=== PATIENT | male | born 1955 | race Caucasian/White ===

== ENCOUNTER → 2016-04-26 | Outpatient (REF) | payer OTHER ==
[~2016-04-26] MED LIST: /CELE20CA OR; /LOR25TA OR; ALEV220C2 PO; AMIT10TA2; AMIT25TA2; AMIT25TA2 OR; BABY81CH PO; BILBERRY; BILBERRY PO; CATA0.1T PO; CLON0.5T; COLA100C2 OR; COMPOUND CREAM TOP; DULO30CA PO; FENT100D25 TD; FLEXERIL; FLEXERIL PO; FURO20TA2 OR; GABA-283 PO; GARLPOW PO; GLUC1000 OR; GLYB1.255; GLYB2.5T6 PO; HYDROCODONE; INSUDET SC; JANU100T14 PO; JANU50TA8 PO; JANUVIA PO; LISI2.5T PO; LYRI150C; LYRI75CA; MAGN250T OR; METF500T4; METF500T4 PO; METH10TA2 OR; MORP15TA2 PO; MORP15TA4; NUCYNTA; OXYC10TA12 OR; PARO12TACR OR; PERC5TAB8 PO; SAWPOW; THERGRAN PO; TRAZ50TA OR; VITA500046 PO; XANA0.5T PO; ZANA4CAP; ZANA6CAP OR; janumet PO
[2016-04-26 13:37] LABS: MEAN CORPUSCULAR HEMOGLOBIN 30.2 pg (27.0-33.0); MEAN CORPUSCULAR HGB CONC 32.5 g/dl (32.0-36.5); MEAN CORPUSCULAR VOLUME 92.9 fl (80.0-96.0); RED CELL DISTRIBUTION WIDTH 12.6 % (11.5-14.5)
[2016-04-26 13:47] LABS: ALBUMIN 3.9 GM/DL (3.2-5.2); ALBUMIN/GLOBULIN RATIO 1.18 (1.00-1.93); ALKALINE PHOSPHATASE 53 U/L (45-117); ALT/SGPT 20 U/L (12-78); ANION GAP 7 MEQ/L (8-16); AST/SGOT 11 U/L (15-37); BILIRUBIN,TOTAL 0.4 MG/DL (0.2-1.0); BLOOD UREA NITROGEN 15 MG/DL (7-18); CALCIUM LEVEL 9.6 MG/DL (8.8-10.2); CARBON DIOXIDE LEVEL 32 MEQ/L (21-32); CHLORIDE LEVEL 100 MEQ/L (98-107); CREATININE FOR GFR 0.65 MG/DL (0.70-1.30); GLOMERULAR FILTRATION RATE > 60.0 (>49); GLUCOSE, FASTING 222 MG/DL (80-110); POTASSIUM SERUM 4.5 MEQ/L (3.5-5.1); SODIUM LEVEL 139 MEQ/L (136-145); TOTAL PROTEIN 7.2 GM/DL (6.4-8.2)
== END ==
LOC: M SFHCPLAZ 11:15
PROVIDERS: ATTEND Internal Medicine
DX: G60.9 Hereditary and idiopathic neuropathy, unspecified (principal); E11.9 Type 2 diabetes mellitus without complications

== ENCOUNTER → 2016-05-03 | Outpatient (CLI) | payer OTHER | LOC: M PAIN 11:00 | PROVIDERS: ATTEND Nurse Practitioner Family | DX: Z09 Encounter for follow-up examination after completed treatment for conditions other than malignant neoplasm (principal); G89.29 Other chronic pain; M54.2 Cervicalgia; E11.42 Type 2 diabetes mellitus with diabetic polyneuropathy; F17.200 Nicotine dependence, unspecified, uncomplicated; Z88.6 Allergy status to analgesic agent; Z91.041 Radiographic dye allergy status; Z79.84 Long term (current) use of oral hypoglycemic drugs; Z79.891 Long term (current) use of opiate analgesic; Z79.899 Other long term (current) drug therapy ==

== ENCOUNTER → 2016-09-06 | Outpatient (CLI) | payer OTHER ==
--- NOTE | 2016-09-07 02:24 | ECWPNPC ---
PATIENT NAME: BESSIE POLK : 1955 GENDER: MALE VISIT DATE: 09/06/2016 DISCHARGE DATE: 09/06/16 1147 VISIT LOCKED DATE TIME: PHYSICIAN: LAE ARMIJO RESOURCE: LEA ARMIJO REASON FOR APPOINTMENT 1. FOLLOWUP HISTORY OF PRESENT ILLNESS HISTORY OF PRESENT ILLNESS: CONTINUES W CONSTANT NECK AND UPPER BACK PAIN.VAS 4/10.PAIN IS CONSTANT SHARP AND BURNING.AGGREVATED W ACTIVITY.FINDS CURRENT MEDICINE HELPFUL W/OUT SIDE EFFECTS.C/O SEVERE LOWER EXTREMITY NEUROPATHY.REPORTING SEVERE HEAD PAIN HAS RESOLVED.STATES CAT SCAN BRAIN WAS NEGATIVE.STATES FULL BODY MRI NORMAL.SUFFERING FROM SEVERE NEUROPATHY IN HANDS.FINDING IT DIFFICULT TO USE HANDS.CURRENTLY USING MSIR 30MG PRN UP TO THREE TABS PER DAY ,GABAPENTIN 300MG AT HS AND XANAX 0.5MG ONCE PER DAY AT NIGHT PRN.FINDS THESE MEDICATIONS HELPFUL AT REDUCING PAIN AND KEEPING HIM COMFORTABLE.DENIES SIDE EFFECTS.ENCOURAGED TO TAKE GABAPENTIN 300MG AT LEAST TWICE PER DAY.PATIENT IS LEARY IT CAUSES FATIGUE.REPORTED LYRICA CAUSED LETHARGY AND HE WASNT ABLE TO TOLERATE IN THE PAST. PAIN THE PATIENT DESCRIBES THE PAIN... THE PATIENT DESCRIBES THE PAIN... THE PATIENT DESCRIBES THE PAIN... THE PATIENT DESCRIBES THE PAIN... THE PATIENT DESCRIBES THE PAIN... PAIN THE PATIENT DESCRIBES THE PAIN... THE PATIENT DESCRIBES THE PAIN... THE PATIENT DESCRIBES THE PAIN... THE PATIENT DESCRIBES THE PAIN... THE PATIENT DESCRIBES THE PAIN... FALL RISK SCREENING: SCREENING :NO FALLS IN THE PAST YEAR CURRENT MEDICATIONS TAKING COLACE 100 MG CAPSULE 1 CAPSULE ORALLY DAILY NEEDED FOR CONSTIPATION TAKING BLOOD GLUCOSE TEST STRIP _ STRIP DX: E11.9 IN VITRO DAILY, DX: E11.9 TAKING LISINOPRIL-HYDROCHLOROTHIAZIDE 20-12.5MG TABLET 1 TABLET ORALLY ONCE A DAY TAKING METFORMIN HCL 1000 MG TABLET 1 TABLET WITH MEALS ORALLY TWICE A DAY TAKING NORTRIPTYLINE HCL 50 MG CAPSULE 1 CAPSULE ORALLY ONCE A DAY AT BEDTIME; MAY INCREASE DOSE BY 1 PILL EVERY 5 DAYS NEEDED FOR NEUROPATHY--MAX 4 PILLS DAILY TAKING GLYBURIDE 5 MG TABLET 1 TABLET ORALLY THREE TIMES A DAY TAKING GABAPENTIN 300 MG CAPSULE 1 CAPSULE ORALLY BEFORE BEDTIME TAKING MORPHINE SULFATE 30 MG TABLET 1 TABLET ORALLY Q 8 HRS MDD=3 TAKING XANAX 0.5 MG TABLET 1 TABLET ORALLY DAILY MDD=1 ALLERGIES MOBIC: PT UNAWARE OF REACTION: ALLERGY MRI DYE: ANAPHYLAXIS: ALLERGY REVIEW OF SYSTEMS CONSTITUTIONAL: ANY CHANGE IN YOUR MEDICAL CONDITION? UNPLANNED WEIGHT LOSS OF 10 POUNDS/ SOMETIMES IS IN SO MUCH PAIN HE JUST GOES TO BED WITHOUT EATING, . CHILLS NO . FEVER NO . INFECTION: DO YOU HAVE NEW INFECTIONS? NO . DO YOU HAVE HISTORY OF MRSA? NO . MUSCULOSKELETAL: ANY NEW PATTERNS OF PAIN OR NUMBNESS? NO . GASTROENTEROLOGY: ANY NEW CHANGE IN BOWEL CONTROL? NO . GENITOURINARY: ANY NEW CHANGE IN BLADDER CONTROL? NO . IS THERE A CHANCE YOU COULD BE ? NO . HEMATOLOGY/LYMPH: DO YOU TAKE ANY BLOOD THINNERS? (FOR EXAMPLE- COUMADIN, PLAVIX, AGGRENOX, PLATEL, PRADAXA, OR XARELTO) NO . WHEN WAS YOUR LAST DOSE? DATE: TIME: . NEUROLOGY: HAVE YOU FALLEN IN THE PAST 6 MONTHS? NO . ANY NEW EXTREMITY NUMBNESS OR WEAKNESS? YES, NEUROPATHY HANDS /// RIGHT CALF CORNER OF LEFT EYE (BRAIN SPASMS) SEE LIGHTNING, ESPECIALLY AT NIGHT . CARDIOLOGY: DO YOU HAVE A PACEMAKER OR DEFIBRILLATOR? NO . RESPIRATORY: HAVE YOU BEEN SICK IN THE PAST WEEK? NO . FEVER NO . FLU LIKE SYMPTOMS? NO . COUGH NO . INTEGUMENTARY: DO YOU HAVE ANY RASHES OR OPEN SORES? NO . ALLERGIC/IMMUNO: ARE YOU ALLERGIC TO SHELLFISH OR IV DYE? NO . ANY NEW ALLERGIES? NO . PSYCHIATRIC: DO YOU HAVE THOUGHTS OF HURTING YOURSELF OR SOMEONE ELSE? NO . ARE YOU ABUSED, NEGLECTED, OR IN AN UNSAFE ENVIRONMENT? NO . ENDOCRINOLOGY: ARE YOU DIABETIC? NO . OTHER: DO YOU NEED ANY PRESCRIPTIONS? NO . IF YES, PLEASE LIST: ____ . ANY NEW PROBLEMS WITH YOUR MEDICATIONS? NO . WHEN DID YOU LAST EAT? ____ . WHEN DID YOU LAST DRINK? ____ . WHAT DID YOU LAST DRINK? ____ . NAME OF PERSON DRIVING YOU HOME? ____ . DO YOU HAVE ANY OTHER QUESTIONS OR CONCERNS NO . REVIEWED BY: PROVIDER: LEA STOVALL . VITAL SIGNS WT 164.8 LBS, HT 70 IN, BMI 23.64 INDEX, BP 146/72 MM HG, HR 90 /MIN, RR 16 /MIN, TEMP 97.4 F, OXYGEN SAT % 99%, NA INITIALS TL 1102, REVIEWED BY: SARIKAPT STATES HE HAS BEEN LOSING WEIGHT, WEIGHED PT ON PMC SCALE TODAY- TL. EXAMINATION GENERAL EXAMINATION: LUNGS:LUNG SOUNDS ARE CLEAR. HEART:HEART RATE REGULAR. MUSCULOSKELETAL:*TRIGGER POINTS:MULTIPLE OVER NECK AND UPPER BACK.HYPERSENSITIVE TO LIGHT TOUCH UPPER BACK AND NECK.. ASSESSMENTS CERVICALGIA - M54.2 (PRIMARY) CHRONIC PRESCRIPTION OPIATE USE - Z79.891 TREATMENT CERVICALGIA CONTINUE COLACE CAPSULE, 100 MG, 1 CAPSULE, ORALLY, DAILY NEEDED FOR CONSTIPATION INCREASE GABAPENTIN CAPSULE, 300 MG, 1 CAPSULE, ORALLY, TID, 30 DAY(S), 90, REFILLS 2 REFILL MORPHINE SULFATE TABLET, 30 MG, 1 TABLET, ORALLY, Q 8 HRS MDD=3, 30 DAYS, 90, REFILLS 0 REFILL XANAX TABLET, 0.5 MG, 1 TABLET, ORALLY, DAILY MDD=1, 30 DAY(S), 30, REFILLS 0 NOTES: ISTOP REGISTRY REVIEWED AND DEMNOSTRATES COMPLLIANCE. BRINGS IN MEDICATIONS WHICH IS APPROPRIATE FOR WHAT WAS DISPENSED. RECENT URINE TOXICOLOGY REVIEWED. NO UNAUTHORIZED MEDICATIONS. NO ILLICIT SUBSTANCES AND PRESCRIBED MEDICATIONS WERE PRESENT. , RISKS AND BENEFITS OF NARCOTIC/OPIOD MEDICATIONS WERE REVIEWED WITH PATIENT - THIS INCLUDES BUT IS NOT LIMITED TO RISK OF DEPENDANCE/DEVELOPMENT OF ADDICTION, MOOD DISTURBANCE AND DEPRESSION, OSTEOPOROSIS, HORMONAL AND LABIDAL CHANGES, RESPIRATORY DEPRESSION AND . PATIENT IS ADVISED NOT TO DRIVE WHILE ON THESE MEDICATIONS, REVIEWED WITH PATIENT THE POTENTIAL RISK OF INCREASED SEDATION, RESPIRATORY SUPPRESSION AND WITH THE COMBINATION OF BENZODIAZAPINE AND OPIOD MEDICATIONS. PATIENT STATES HE UNDERSTANDS THIS RISK AND WISHES TO CONTINUE WITH THERAPY. PROCEDURE CODES FA211 ESTABILISHED PATIENT [facility] CHARGE DISPOSITION & COMMUNICATION FOLLOW UP 4 MONTHS ELECTRONICALLY SIGNED BY SIA CHRISTIE ON 09/06/2016 AT 03:35 PM EDT DISCLAIMER : THIS IS A VISIT SUMMARY EXTRACTED FROM THE [employer] CHART. IT IS NOT A COPY OF THE [employer] PROGRESS NOTE. MTDD
== END ==
LOC: M PAIN 11:00
PROVIDERS: ATTEND Nurse Practitioner Family
DX: M54.2 Cervicalgia (principal); Z79.891 Long term (current) use of opiate analgesic; Z79.84 Long term (current) use of oral hypoglycemic drugs; Z79.899 Other long term (current) drug therapy; Z91.041 Radiographic dye allergy status; Z88.8 Allergy status to other drugs, medicaments and biological substances

== ENCOUNTER → 2017-01-10 | Outpatient (CLI) | payer OTHER ==
[~2017-01-10] MED LIST changes: +GLYB1POW PO; +LISINOP/HCTZ PO; +METFPOW PO; +POTA99TA PO
== END ==
LOC: M PAIN 11:00
PROVIDERS: ATTEND Nurse Practitioner Family
DX: M54.2 Cervicalgia (principal); M79.1 Myalgia; I10 Essential (primary) hypertension; E11.42 Type 2 diabetes mellitus with diabetic polyneuropathy; Z79.891 Long term (current) use of opiate analgesic; Z79.899 Other long term (current) drug therapy; Z79.84 Long term (current) use of oral hypoglycemic drugs; Z88.8 Allergy status to other drugs, medicaments and biological substances; Z91.041 Radiographic dye allergy status

== ENCOUNTER → 2017-03-13 | Outpatient (CLI) | payer OTHER | LOC: M PAIN 10:45 | DX: M54.2 Cervicalgia (principal); M79.1 Myalgia; E11.9 Type 2 diabetes mellitus without complications; M19.90 Unspecified osteoarthritis, unspecified site; F17.200 Nicotine dependence, unspecified, uncomplicated; Z88.5 Allergy status to narcotic agent; Z91.041 Radiographic dye allergy status; Z79.84 Long term (current) use of oral hypoglycemic drugs; Z79.891 Long term (current) use of opiate analgesic; Z79.899 Other long term (current) drug therapy | CPT/HCPCS: G0463 ==

== ENCOUNTER → 2017-03-28 | Outpatient (REF) | payer OTHER ==
[2017-03-28 13:06] LABS: MAU/CREAT RATIO 87.2 MCG/MG (0.0-30.0)
[2017-03-28 13:46] LABS: ALBUMIN 3.8 GM/DL (3.2-5.2); ALBUMIN/GLOBULIN RATIO 1.12 (1.00-1.93); ALKALINE PHOSPHATASE 66 U/L (45-117); ALT/SGPT 20 U/L (12-78); ANION GAP 7 MEQ/L (8-16); AST/SGOT 12 U/L (7-37); BILIRUBIN,TOTAL 0.2 MG/DL (0.2-1.0); BLOOD UREA NITROGEN 25 MG/DL (7-18); CALCIUM LEVEL 9.2 MG/DL (8.8-10.2); CARBON DIOXIDE LEVEL 30 MEQ/L (21-32); CHLORIDE LEVEL 102 MEQ/L (98-107); CHOLESTEROL LEVEL 124 MG/DL (<200); CHOLESTEROL RISK RATIO 3.179 (<5); CREATININE FOR GFR 0.82 MG/DL (0.70-1.30); GLOMERULAR FILTRATION RATE > 60.0 (>49); GLUCOSE, FASTING 268 MG/DL (80-110); HDL CHOLESTEROL 39 MG/DL (>40); NON-HDL-C 85 MG/DL; SODIUM LEVEL 139 MEQ/L (136-145); TOTAL PROTEIN 7.2 GM/DL (6.4-8.2); TRIGLYCERIDES LEVEL 85 MG/DL (<150)
[2017-03-28 13:49] LABS: POTASSIUM SERUM 5.3 MEQ/L (3.5-5.1)
[2017-03-28 14:56] LABS: ESTIMATED AVERAGE GLUCOSE 200 MG/DL (60-110); HEMOGLOBIN A1c 8.6 %
== END ==
LOC: M SFHCPLAZ 09:52
DX: E11.40 Type 2 diabetes mellitus with diabetic neuropathy, unspecified (principal); E78.00 Pure hypercholesterolemia, unspecified

== ENCOUNTER → 2017-05-29 | Outpatient (CLI) | payer OTHER | LOC: M PAIN 11:00 | DX: M54.2 Cervicalgia (principal); E11.9 Type 2 diabetes mellitus without complications; F17.210 Nicotine dependence, cigarettes, uncomplicated; I10 Essential (primary) hypertension; R51 Headache; M79.604 Pain in right leg; Z79.84 Long term (current) use of oral hypoglycemic drugs; Z79.891 Long term (current) use of opiate analgesic; Z79.899 Other long term (current) drug therapy; Z88.8 Allergy status to other drugs, medicaments and biological substances; Z91.041 Radiographic dye allergy status | CPT/HCPCS: G0463 ==

== ENCOUNTER → 2017-09-04 | Outpatient (CLI) | payer OTHER | LOC: M PAIN 11:00 | DX: M54.2 Cervicalgia (principal); E11.9 Type 2 diabetes mellitus without complications; F17.210 Nicotine dependence, cigarettes, uncomplicated; M19.90 Unspecified osteoarthritis, unspecified site; Z79.891 Long term (current) use of opiate analgesic; Z79.84 Long term (current) use of oral hypoglycemic drugs; Z79.899 Other long term (current) drug therapy; Z91.041 Radiographic dye allergy status; Z88.8 Allergy status to other drugs, medicaments and biological substances | CPT/HCPCS: G0463 ==

== ENCOUNTER → 2017-12-18 | Outpatient (CLI) | payer OTHER | LOC: M PAIN 11:00 | DX: M54.2 Cervicalgia (principal); E11.9 Type 2 diabetes mellitus without complications; F17.210 Nicotine dependence, cigarettes, uncomplicated; Z79.84 Long term (current) use of oral hypoglycemic drugs; Z79.891 Long term (current) use of opiate analgesic; Z79.899 Other long term (current) drug therapy; Z91.041 Radiographic dye allergy status; Z88.6 Allergy status to analgesic agent | CPT/HCPCS: G0463 ==

== ENCOUNTER → 2018-03-05 | Outpatient (CLI) | payer OTHER ==
[~2018-03-05] MED LIST changes: -GABA-283 PO; +GABA-845 PO
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
== END ==
LOC: M PAIN 14:30
PROVIDERS: ATTEND Nurse Practitioner Family
DX: M54.2 Cervicalgia (principal); E11.42 Type 2 diabetes mellitus with diabetic polyneuropathy; Z79.891 Long term (current) use of opiate analgesic; F17.210 Nicotine dependence, cigarettes, uncomplicated; Z79.899 Other long term (current) drug therapy; Z91.041 Radiographic dye allergy status; Z88.6 Allergy status to analgesic agent

== ENCOUNTER 2018-06-04 08:02 | Day surgery (SDC) | payer OTHER ==
[~2018-06-04] VITALS: Ht 182.9 cm; Wt 73.9 kg
[~2018-06-04 08:02] MED LIST changes: +GABA-843 PO; +GLIP10TA18 PO; +GLIP10TA6 PO; +LISI20TA PO; +MAGN250T6 PO; +METF10004 PO; +MS C30TA6 PO; +MSIR30TA PO; +MULTCAP PO; +NORT50CA PO; +NS 1,000 ML IV ONE
[2018-06-04] MEDS ORDERED: LIDOCAINE 2% INJ 100 MG/5 ML SDV (FOR ANES.) As Ordered ONE (09:04)
[2018-06-04] MEDS ORDERED: PROPOFOL 500 MG/50 ML VIAL As Ordered ONE (09:04)
--- NOTE | 2018-06-04 09:26 | ROOR ---
Patient Name: Francisco Begum Procedure Date: 06/04/2018 9:02 AM Date of : 1955 Age: 63 Room: [facility] Gender: Male Note Status: Finalized Procedure: Colonoscopy Indications: High risk colon cancer surveillance: Personal history of colonic polyps, Last colonoscopy: December 2016 Providers: Edu HINTON MD Referring MD: Jordy Martínez MD Requesting Provider: Medicines: Monitored Anesthesia Care Complications: No immediate complications. Procedure: Pre-Anesthesia Assessment: - The heart rate, respiratory rate, oxygen saturations, blood pressure, adequacy of pulmonary ventilation, and response to care were monitored throughout the procedure. The Colonoscope was introduced through the anus with the intention of advancing to the cecum. The scope was advanced to the transverse colon before the procedure was aborted. Medications were given. The colonoscopy was performed with difficulty due to poor bowel prep with stool present. The patient tolerated the procedure well. The quality of the bowel preparation was poor. Findings: The perianal and digital rectal examinations were normal. The colon is grossly normal without large tumors or obstructing lesions. Unable to perform adequate detail examination. Small lesions may have been missed. Impression: - Preparation of the colon was poor. - The colon is grossly normal without large tumors or obstructing lesions. Unable to perform adequate detail examination. - No specimens collected. Recommendation: - Repeat colonoscopy at the next available appointment because the bowel preparation was poor. - My office will call you within the next few days to reschedule a colonoscopy with alternate colon preparation. - You will need additional colon prep to complete a quality examination. Edu Hinton MD Edu HINTON MD 06/04/2018 9:26:18 AM This report has been signed electronically. Number of Addenda: 0 Note Initiated On: 06/04/2018 9:02 AM Estimated Blood Loss: Estimated blood loss: none.
[2018-06-04 09:45] VITALS: BP 95/64
== END 2018-06-04 09:49 | disposition home or self-care (01) ==
LOC: M OPP 08:02
PROVIDERS: ATTEND Internal Medicine Gastroenterology
DX: Z86.010 Personal history of colon polyps (principal)

== ENCOUNTER → 2018-06-05 | Outpatient (CLI) | payer OTHER ==
[~2018-06-05] MED LIST changes: -NS 1,000 ML IV ONE
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
== END ==
LOC: M PAIN 13:30
PROVIDERS: ATTEND Nurse Practitioner Family
DX: M54.2 Cervicalgia (principal); E11.40 Type 2 diabetes mellitus with diabetic neuropathy, unspecified; I10 Essential (primary) hypertension; E78.00 Pure hypercholesterolemia, unspecified; M54.6 Pain in thoracic spine; F17.210 Nicotine dependence, cigarettes, uncomplicated; Z79.84 Long term (current) use of oral hypoglycemic drugs; Z79.891 Long term (current) use of opiate analgesic; Z79.899 Other long term (current) drug therapy; Z88.6 Allergy status to analgesic agent; Z91.041 Radiographic dye allergy status

== ENCOUNTER → 2018-09-17 | Outpatient (CLI) | payer OTHER ==
[~2018-09-17] MED LIST changes: -/CELE20CA OR; +CELE1CAP4 OR; -DULO30CA PO; +DULO30CA9 PO; +TIZA6CAP8 OR; -ZANA6CAP OR
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
== END ==
LOC: M PAIN 10:30
PROVIDERS: ATTEND Family Medicine
DX: M54.2 Cervicalgia (principal); G62.9 Polyneuropathy, unspecified; I10 Essential (primary) hypertension; E78.00 Pure hypercholesterolemia, unspecified; F17.210 Nicotine dependence, cigarettes, uncomplicated; Z79.84 Long term (current) use of oral hypoglycemic drugs; Z79.891 Long term (current) use of opiate analgesic; Z79.899 Other long term (current) drug therapy; Z88.6 Allergy status to analgesic agent; Z91.041 Radiographic dye allergy status

== ENCOUNTER → 2018-11-12 | Outpatient (CLI) | payer OTHER ==
[~2018-11-12] MED LIST changes: -LISI20TA PO; +LISI20TA18 PO
--- NOTE | 2018-11-12 14:57 | REP ---
REASON: Tobacco abuse. COMPARISON: 06/11/2009 As per the protocol, only lung window images were sent to the read station for interpretation. There is a 4 mm sized unchanged nodule in the apical posterior segment of the left upper lobe abutting the major fissure. There is a 5 mm sized pleural-based nodule in the posterior segment of the right upper lobe. This too is unchanged. There is mild cylindrical bronchiectasis. This has developed since the prior exam or is at least much better imaged using today's technology compared to the prior old exam. No new abnormal nodules, masses, or opacities have developed. Gross evaluation of the mediastinum and pulmonary ashleigh shows no abnormalities. Gross evaluation of the imaged osseous structures and imaged upper abdomen shows no gross abnormalities. IMPRESSION: No new pulmonary nodules. Lung-RADS category 1. Cylindrical bronchiectasis, as described above. Electronically Signed by Alli Busch DO 11/12/2018 03:36 P
== END ==
LOC: M RAD 12:52
PROVIDERS: ATTEND Internal Medicine
DX: F17.210 Nicotine dependence, cigarettes, uncomplicated (principal); Z12.2 Encounter for screening for malignant neoplasm of respiratory organs

== ENCOUNTER → 2018-12-17 | Outpatient (CLI) | payer OTHER ==
[~2018-12-17] MED LIST changes: -LISI20TA18 PO; +LISI20TA19 PO
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
== END ==
LOC: M PAIN 10:30
PROVIDERS: ATTEND Family Medicine
DX: M54.2 Cervicalgia (principal); G89.29 Other chronic pain; E11.40 Type 2 diabetes mellitus with diabetic neuropathy, unspecified; I10 Essential (primary) hypertension; E78.00 Pure hypercholesterolemia, unspecified; F17.210 Nicotine dependence, cigarettes, uncomplicated; Z88.6 Allergy status to analgesic agent; Z91.041 Radiographic dye allergy status; Z79.84 Long term (current) use of oral hypoglycemic drugs; Z79.891 Long term (current) use of opiate analgesic; Z79.899 Other long term (current) drug therapy

== ENCOUNTER → 2019-02-11 | Outpatient (CLI) | payer OTHER ==
[~2019-02-11] MED LIST changes: +ISOVUE-370 76% 100ML VIAL (Q9967) As Ordered ONE
--- NOTE | 2019-02-11 15:34 | REP ---
CT neck: 02/11/2019. Indication: Neck mass. Comparison: 07/18/2007. Technique: Axial images of the neck soft tissues were obtained following the IV administration of 75 ml Isovue 370. Findings: There is no abnormal soft tissue mass, abnormal fluid collection or cervical lymphadenopathy. Atherosclerotic disease is noted. No severe ICA stenosis is detected by this technique. The nondominant left vertebral artery predominately terminates as PICA. No ocular, intraorbital or intracranial abnormalities are detected. The paranasal sinuses and mastoid air cells are essentially clear. There is a small incompletely evaluated juxtapleural soft tissue nodule within the right lung which is stable compared to 11/12/2018. Impression: No abnormal neck soft tissue solid mass, abnormal fluid collection or cervical lymphadenopathy. Electronically Signed by Satinder Sears DO 02/11/2019 11:04 A
== END ==
LOC: M RAD 09:57
PROVIDERS: ATTEND Family Medicine
DX: R22.1 Localized swelling, mass and lump, neck (principal)
CPT/HCPCS: 70491; Q9967

== ENCOUNTER → 2019-04-22 | Outpatient (CLI) | payer OTHER ==
[~2019-04-22] MED LIST changes: -ISOVUE-370 76% 100ML VIAL (Q9967) As Ordered ONE
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
== END ==
LOC: M PAIN 10:45
PROVIDERS: ATTEND Family Medicine
DX: M54.2 Cervicalgia (principal); G89.29 Other chronic pain; E11.40 Type 2 diabetes mellitus with diabetic neuropathy, unspecified; I10 Essential (primary) hypertension; E78.00 Pure hypercholesterolemia, unspecified; F17.210 Nicotine dependence, cigarettes, uncomplicated; Z88.6 Allergy status to analgesic agent; Z91.041 Radiographic dye allergy status; Z79.84 Long term (current) use of oral hypoglycemic drugs; Z79.891 Long term (current) use of opiate analgesic; Z79.899 Other long term (current) drug therapy

== ENCOUNTER 2019-10-01 10:47 | Inpatient (IN) | payer OTHER ==
[~2019-10-01] VITALS: Ht 177.8 cm; Wt 70.2 kg
[2019-10-01] MEDS ORDERED: LAMO25TA4 PO (11:05)
[2019-10-01 12:12] LABS: BASO % 0.4 % (0.0-1.0); EOS # 0.1 10^3/uL (0.0-0.5); EOS % 0.7 % (0.0-3.0); HEMOGLOBIN 13.6 g/dl (13.5-17.5); LYMPH # 1.6 10^3/uL (1.5-5.0); LYMPH % 14.4 % (24.0-44.0); MEAN CORPUSCULAR VOLUME 91.1 fl (80.0-96.0); MONO # 0.8 10^3/uL (0.0-0.8); MONO % 7.1 % (0.0-5.0); NEUTROPHILS # 8.5 10^3/uL (1.5-8.5); NEUTROPHILS % 76.9 % (36.0-66.0); PLATELET COUNT, AUTOMATED 229 10^3/uL (150-450); RED BLOOD COUNT 4.39 10^6/uL (4.30-6.10)
[2019-10-01 12:30] LABS: BLOOD UREA NITROGEN 11 MG/DL (7-18); CALCIUM LEVEL 9.1 MG/DL (8.8-10.2); CARBON DIOXIDE LEVEL 32 MEQ/L (21-32); CHLORIDE LEVEL 99 MEQ/L (98-107); CREATININE FOR GFR 0.69 MG/DL (0.70-1.30); GLOMERULAR FILTRATION RATE > 60.0 (>49); GLUCOSE, FASTING 254 MG/DL (70-100); POTASSIUM SERUM 4.5 MEQ/L (3.5-5.1); SODIUM LEVEL 131 MEQ/L (136-145)
[2019-10-01 13:01] LABS: ERYTHROCYTE SEDIMENTATION RATE 37 mm/hr (0-20)
[2019-10-01] MEDS ORDERED: CLINDAMYCIN 900 MG in IV 1 EA IV ONE (13:30)
[2019-10-01] MEDS ORDERED: NS 1,000 ML IV ONE ×2 (13:30→15:45)
[2019-10-01] MEDS ORDERED: NICOTINE 21MG/24HR 1 EA TRANSDERMAL TD ONE (13:30)
--- NOTE | 2019-10-01 13:35 | REP ---
REASON FOR EXAM: Assess for foreign body. Abnormal soft tissue lucencies are seen throughout the dorsal soft tissues at the level of the mid foot and anterior to the tibiotalar joint. There is no evidence of a radiopaque foreign body. There is no evidence of an acute fracture. There is a retrocalcaneal heel spur. Mild degenerative changes are seen throughout the intradigital joints. IMPRESSION: Abnormal soft tissue lucencies as described above consistent with soft tissue injury. This needs to be correlated clinically. There is no evidence of a radiopaque foreign body. It should be remembered that not all forms of glass are leaded to the degree necessary to be radiographically opaque. Electronically Signed by Alli Busch DO 10/01/2019 05:20 P
[2019-10-01 13:48] LABS: HEMOGLOBIN A1c 8.7 %
[2019-10-01 14:08] LABS: VENOUS BASE EXCESS 4.4 (-2.0-2.0); VENOUS HCO3 32.5 MEQ/L (23.0-27.0); VENOUS O2 SATURATION 62.6 % (60.0-80.0); VENOUS PARTIAL PRESSURE CO2 64.4 mmHg (38.0-50.0); VENOUS PARTIAL PRESSURE O2 31.5 mmHg (30.0-50.0); VENOUS PH 7.321 UNITS (7.330-7.430); VENOUS STANDARD HCO3 27.5 MEQ/L; VENOUS TOTAL CO2 34.5 MEQ/L (24.0-28.0)
[2019-10-01] MEDS ORDERED: KETOROLAC 30 MG/ML 1ML VIAL IV ONE (14:15)
[2019-10-01] MEDS ORDERED: MORP-69 PO (14:20)
[2019-10-01] MEDS ORDERED: GLIP10TA18 PO (14:20)
[2019-10-01] MEDS ORDERED: CLEO300C2 PO (14:21)
[2019-10-01] MEDS ORDERED: NS 1,000 ML IV SCH (16:45)
[2019-10-01] MEDS ORDERED: PIPERACILLIN/TAZOBACTAM SOD 3.375 GM in D5W MINI-BAG PLUS 50 ML IV ONE (17:00)
[2019-10-01] MEDS ORDERED: MORPHINE 4 MG/ML 1ML VIAL/SYRINGE (J2270) IV ONE (18:30)
[2019-10-01] MEDS ORDERED: MORPHINE 30 MG TAB **MSIR PO ONE (19:00)
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
[2019-10-01] MEDS ORDERED: VANCOMYCIN HCL 1,000 MG, VIAL MATE ADAPTER 1 EACH in D5W 250 ML IV ONE (20:00)
[2019-10-01] MEDS ORDERED: ENOXAPARIN 40MG/0.4ML SYRINGE (J1650 PER 10MG) SC ONE (21:00)
[2019-10-01 22:21] VITALS: BP 132/67
[2019-10-01] MEDS: ALPRAZolam 0.5 MG TAB PO SCH (22:45)
[2019-10-01] MEDS: lamoTRIgine 25 MG TAB PO SCH (22:46)
--- NOTE | 2019-10-01 23:46 | REP ---
REASON: Assess for foreign body. Ultrasonographic evaluation of the plantar surface of the foot was obtained to assess for a foreign body. Seen in an area which was interrogated by ultrasound by the technologist, there is a 1.3 cm sized irregular hypoechoic area with central echogenic foci. IMPRESSION: Finding as described above. The echogenic foci could be either secondary to gas within the soft tissues or potentially foreign body. The echogenic foci do not cast acoustic shadows, however. Consider followup with CT. Electronically Signed by Alli Busch DO 10/02/2019 11:24 A
[2019-10-01] MEDS: LACTOBACILLUS ACIDOPHILUS CAP (BACID) PO SCH (23:49)
[2019-10-01] MEDS: MORPHINE 15 MG SA TAB PO SCH (23:49)
[2019-10-02] MEDS: PIPERACILLIN/TAZOBACTAM SOD 3.375 GM in D5W MINI-BAG PLUS 50 ML IV SCH ×3 (00:20→11:45)
[2019-10-02] MEDS: MORPHINE 15 MG SA TAB PO SCH ×3 (00:21→20:47)
--- NOTE | 2019-10-02 00:38 | PHACANCOPD ---
PHARMACY VANCOMYCIN DOSING Pt Demographics Demographics Patient Age:64 , Weight:70.200 , Gender: male Adjusted Body Weight Date: 10/02/19, Adjusted Body Weight: [70.2] Kg(ACTUAL WT) Vancomycin Vancomycin indication: DIABETIC FOOT Vancomycin Target Ranges: 10-20 mcg/ml Vancomycin Load Y/N: No Load Dose Date Time Vancomycin Load Dose: Date: Time: Vancomycin Dose Date: 10/02/19. Current Vancomycin Dose: [1 GM Q8H] Intermittent Dosing?: No Labs Micro Microbiology 10/01/19 Gram Stain, Received Pending 10/01/19 Wound Culture, Received Pending Creatinine Clearance Date:10/02/19. Creatinine Clearance: [>100]. Assessment and Plan Maintaining Current Dose?: Yes Reason for dose change: No Dose Change Pharmacist Note Pharmacist Note Date: 10/02/19. Pharmacist note:64 YOM ADMITTED W/ DIABETIC FOOT WOUND/CELLULITIS, HT:70",WT:70.2KG,[id number](CALCULATED)ABX tx includes Pip/Tazo 3.375 IV 6H and Pharmacy dosed Vancomycin ( trough goal= 10-20). Vanco 1 gram administered in ED 09/30@20:30.NO LOAD entered. Will begin Vancomycin 1 gm IV Q8H 10/01@4:00. First trough is scheduled for tonight@19:00. Will continue to follow labs and make adj ustments as needed. S[facility]AN [facility] Oct 02, 2019 00:38
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
[2019-10-02] MEDS: VANCOMYCIN HCL 1,000 MG, VIAL MATE ADAPTER 1 EACH in D5W 250 ML IV SCH ×3 (03:46→20:46)
[2019-10-02 06:00] VITALS: BP 112/64
[2019-10-02 06:01] LABS: HEMATOCRIT 35.3 % (42.0-52.0); HEMOGLOBIN 11.9 g/dl (13.5-17.5); MEAN CORPUSCULAR HEMOGLOBIN 30.7 pg (27.0-33.0); MEAN CORPUSCULAR HGB CONC 33.7 g/dl (32.0-36.5); MEAN CORPUSCULAR VOLUME 91.2 fl (80.0-96.0); PLATELET COUNT, AUTOMATED 172 10^3/uL (150-450); RED BLOOD COUNT 3.87 10^6/uL (4.30-6.10); WHITE BLOOD COUNT 5.3 10^3/uL (4.0-10.0)
[2019-10-02 06:28] LABS: BLOOD UREA NITROGEN 12 MG/DL (7-18); CALCIUM LEVEL 8.1 MG/DL (8.8-10.2); CARBON DIOXIDE LEVEL 29 MEQ/L (21-32); CHLORIDE LEVEL 103 MEQ/L (98-107); CREATININE FOR GFR 0.56 MG/DL (0.70-1.30); GLOMERULAR FILTRATION RATE > 60.0 (>49); GLUCOSE, FASTING 242 MG/DL (70-100); POTASSIUM SERUM 4.1 MEQ/L (3.5-5.1); SODIUM LEVEL 136 MEQ/L (136-145)
[2019-10-02] MEDS: lamoTRIgine 25 MG TAB PO SCH (07:49)
[2019-10-02] MEDS: metFORMIN (GLUCOPHAGE) 1000 MG TABLET PO SCH ×2 (07:49→18:04)
[2019-10-02] MEDS: glipiZIDE XL 5 MG TABCR PO SCH (07:50)
[2019-10-02] MEDS: MORPHINE 30 MG TAB **MSIR PO SCH ×2 (07:50→14:14)
[2019-10-02] MEDS: LACTOBACILLUS ACIDOPHILUS CAP (BACID) PO SCH ×4 (07:50→20:46)
[2019-10-02] MEDS: KETOROLAC 30 MG/ML 1ML VIAL IV PRN ×2 (09:34→20:48)
[2019-10-02 10:52] LABS: C REACTIVE PROTEIN QUANTITATIV 4.78 MG/DL (0.00-0.30)
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
[2019-10-02 14:00] VITALS: BP 136/62
[2019-10-02] MEDS: NICOTINE 21MG/24HR 1 EA TRANSDERMAL TD SCH (16:07)
[2019-10-02] MEDS ORDERED: PROHANCE 279.3MG/ML 15ML VIAL As Ordered ONE (19:41)
--- NOTE | 2019-10-02 20:20 | REPVR ---
PROCEDURE INFORMATION: Exam: MR Right Lower Extremity Joint Without and With Contrast; Ankle Exam date and time: 10/02/2019 7:54 PM Age: 64 years old Clinical indication: Cellulitis and difficulty in walking and edema; Yes, it is localized; Right; Patient HX: Ankle swelling pain, tenderness, redness; Additional info: R/O osteo TECHNIQUE: Imaging protocol: MR of the Right lower extremity without and with contrast. Exam focused on the ankle. Contrast material: PROHANCE; Contrast volume: 14 ml; Contrast route: INTRAVENOUS (IV); COMPARISON: CT-Foot WITHOUT CONTRAST 10/01/2019 2:44 PM FINDINGS: There is diffuse soft tissue swelling and confluent subcutaneous edema with associated enhancement and overlying skin thickening, compatible with cellulitis/myositis. Subcutaneous edema is most pronounced about the ankle and along the dorsum of the foot. Intramuscular edema is most pronounced along the plantar aspect of the foot. No organized fluid collection is identified to suggest abscess. There is no soft tissue mass. Patchy foci of signal dropout are noted in the subcutaneous tissues along the anterolateral aspect of the ankle, likely corresponding to the soft tissue gas seen on the prior CT scan. There is no evidence of acute fracture or dislocation. Alignment is anatomic. Bone marrow signal is normal. The articular cartilage is grossly intact. There are no erosive or destructive changes. No lytic or blastic lesion is seen. There is no significant effusion. The visualized portions of the medial, lateral and anterior ankle tendons are intact. There is mild tendinopathy and enthesopathy at the Achilles insertion. There is mild thickening of the middle band of the plantar fascia in association with a small plantar calcaneal spur, suggestive of chronic plantar fasciitis. There is normal signal in the sinus Tarsi. The anterior and posterior talofibular ligaments are intact. The calcaneofibular ligament is also intact. The visualized portions of the spring ligament and deltoid ligament complex are intact. IMPRESSION: 1. Cellulitis/myositis without organized fluid collection to suggest abscess. No MR evidence of acute osteomyelitis. 2. Additional findings, as above. Electronically signed by: Tae Ellis On 10/02/2019 20:20:11 PM
[2019-10-02] MEDS: ALPRAZolam 0.5 MG TAB PO SCH (20:46)
[2019-10-02 22:00] VITALS: BP 152/78
--- NOTE | 2019-10-03 00:24 | CR ---
DATE OF ADMISSION: 10/01/2019 CHIEF COMPLAINT: Right foot swelling and redness. HISTORY OF THE PRESENT ILLNESS: This 64-year-old man is seen today in the emergency department at [facility]. I was consulted by Dr. Cifuentes, the hospitalist. This man stepped on glass on Sunday, which is now about 4 days ago. He was seen at a walk-in clinic. They performed an irrigation and debridement. He was placed on oral antibiotics. He subsequently presented on 10/01/2019 with increased redness and swelling of his right foot. PAST MEDICAL HISTORY: Prescription opiate use. Type 2 diabetes. Peripheral neuropathy. Hypertension. Nicotine dependence; smokes up to a pack and half to three packs of cigarettes a day. Hypercholesterolemia. Colonic polyps. Chronic neck and upper back pain. Cervicalgia. ALLERGIES: To MOBIC and DYE from MRI. SURGICAL HISTORY: Colonoscopy 2010, 2013, 2018. SOCIAL HISTORY: The patient smokes up to three packs of cigarettes a day, now down to a pack and a half. 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 MEDICATIONS: Include Xanax, clindamycin, glipizide, lamotrigine, metformin, morphine, lisinopril, hydrochlorothiazide, magnesium PHYSICAL EXAM: Vital signs: Temperature 97.0. Blood pressure 136/62, pulse rate 82. Respiratory rate 18, 97% on room air. 64-year-old man. He looks his stated age. Appears thin overall. In terms of his right lower extremity, there is moderate swelling about his foot. There is mild redness, primarily of the foot. He does state that the redness was up to near his knee 24 hours ago. Now, over the last 12 hours, it has come down to be mostly in the distal one-third of the tibia. Calf is soft. Decreased sensation plantar aspect of the foot, but this is normal for him. He has moderate tibialis posterior pulse. Foot is warm and well perfused. There is what appears to be mostly superficial closed longitudinal abrasion about an inch long in the mid aspect of the palmar aspect of the right foot. It is not draining anything. There is some healing granulation tissue over top, but no obvious fluid collection deep down. He is able wiggle his toes, dorsiflex, plantar flex the foot without difficulty. LABORATORY EXAMINATION: Reveals white blood cell count 11 initially and then 5.3 today. ESR was 37. CRP has trended down from 7 to 4.78 today. Foot x-ray reveals soft tissue lucencies consist with soft tissue injury. No evidence of radio-opaque foreign body. No obvious fracture. CT scan was reviewed. This demonstrates scattered air density throughout the dorsolateral soft tissues. Consider infectious etiology with air producing organism. Extremity ultrasound demonstrates 1.3 cm irregular hypoechoic area with central echogenic foci. Consider followup CT. ASSESSMENT/PLAN: 64-year-old man appears to have soft tissue cellulitis of his right foot. There is no obvious drainable collection or area to perform an irrigation and debridement. Generally glass is inert and does not need to be removed unless this is causing great difficulty with ambulation. This patient is on IV antibiotics, and I recommend consultation with Dr. Shetty in terms of what antibiotic choice. In addition, I also recommend the hospitalist consult a crop farm helper to determine, from their perspective, if there is any operative intervention indicated here or long-term management to help with this man's diabetic peripheral neuropathy and overall management. Overall, I do not see a clinical indication here for an acute operative intervention.
[2019-10-03] MEDS: lamoTRIgine 25 MG TAB PO SCH ×3 (02:19→20:04)
[2019-10-03] MEDS: VANCOMYCIN HCL 1,000 MG, VIAL MATE ADAPTER 1 EACH in D5W 250 ML IV SCH ×2 (04:47→12:43)
[2019-10-03] MEDS: KETOROLAC 30 MG/ML 1ML VIAL IV PRN ×3 (04:56→20:05)
[2019-10-03 06:00] VITALS: BP 146/71
[2019-10-03] MEDS: MORPHINE 30 MG TAB **MSIR PO SCH ×2 (06:56→12:44)
[2019-10-03] MEDS: metFORMIN (GLUCOPHAGE) 1000 MG TABLET PO SCH ×2 (08:18→18:08)
[2019-10-03] MEDS: LACTOBACILLUS ACIDOPHILUS CAP (BACID) PO SCH ×4 (08:18→20:03)
[2019-10-03] MEDS: ENOXAPARIN 40MG/0.4ML SYRINGE (J1650 PER 10MG) SC SCH (08:18)
[2019-10-03] MEDS: glipiZIDE XL 5 MG TABCR PO SCH (08:18)
[2019-10-03] MEDS: NICOTINE 21MG/24HR 1 EA TRANSDERMAL TD SCH (08:18)
[2019-10-03 08:42] LABS: HEMATOCRIT 35.2 % (42.0-52.0); HEMOGLOBIN 11.7 g/dl (13.5-17.5); MEAN CORPUSCULAR HGB CONC 33.2 g/dl (32.0-36.5); MEAN CORPUSCULAR VOLUME 93.4 fl (80.0-96.0); PLATELET COUNT, AUTOMATED 190 10^3/uL (150-450); RED BLOOD COUNT 3.77 10^6/uL (4.30-6.10); WHITE BLOOD COUNT 4.7 10^3/uL (4.0-10.0)
[2019-10-03 09:09] LABS: BLOOD UREA NITROGEN 14 MG/DL (7-18); CALCIUM LEVEL 8.3 MG/DL (8.8-10.2); CARBON DIOXIDE LEVEL 30 MEQ/L (21-32); CHLORIDE LEVEL 106 MEQ/L (98-107); CREATININE FOR GFR 0.72 MG/DL (0.70-1.30); GLOMERULAR FILTRATION RATE > 60.0 (>49); GLUCOSE, FASTING 219 MG/DL (70-100); POTASSIUM SERUM 4.8 MEQ/L (3.5-5.1); SODIUM LEVEL 140 MEQ/L (136-145)
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
[2019-10-03] MEDS ORDERED: DEXTROSE 50% 50 ML SYRINGE IV PRN (10:30)
[2019-10-03] MEDS ORDERED: GLUCAGON INJ 1MG VIAL SC PRN (10:30)
[2019-10-03] MEDS ORDERED: GLUCOSE 4GM CHEW TABLET PO PRN (10:30)
[2019-10-03] MEDS: HumaLOG INSULIN (NovoLOG) PER UNIT SC SCH ×2 (12:43→17:30)
[2019-10-03 14:00] VITALS: BP 144/73
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
[2019-10-03] MEDS: MORPHINE 15 MG SA TAB PO SCH ×2 (18:08→20:04)
[2019-10-03] MEDS: CEPHALEXIN 500 MG CAP PO SCH ×2 (18:08→23:53)
[2019-10-03] MEDS: ALPRAZolam 0.5 MG TAB PO SCH (20:03)
[2019-10-03] MEDS ORDERED: HumaLOG INSULIN (NovoLOG) PER UNIT SC SCH (21:00)
[2019-10-03 22:00] VITALS: BP 145/79
--- NOTE | 2019-10-03 23:40 | IPN ---
DATE: 10/03/2019 INFECTIOUS DISEASE PROGRESS NOTE Francisco is doing well. He denies any complaint. No nausea, vomiting or diarrhea. No abdominal pain. No fever or chills. He has no pain in his leg. Erythema and redness have diminished. He has neuropathy to mid calf and therefore, he has no pain. LABORATORY DATA: White count 4.7, hemoglobin 11.7, hematocrit 35.2, platelets 190, sed rate 37, sodium 140, potassium 4.8, chloride 106, bicarbonate 30, BUN 14, creatinine 0.72, glucose 219, HbA1c 8.7, CRP 7 down to 4.78. Wound culture was positive for methicillin-sensitive Staphylococcus aureus (MSSA). Blood cultures are no growth after 24 hours. On physical exam, temperature is 97.9, pulse 58, respirations 19, blood pressure 146/71, oxygen saturation (O2 sat) 99% on room air. Heart: Normal S1, S2. No murmurs appreciated. Lungs are clear. No wheezes, rales or rhonchi. Abdomen: Soft, nontender. No hepatosplenomegaly. Back: No costovertebral angle (CVA) tenderness. Extremities: No edema on the left side. Right side has +1 ankle edema with slight erythema along the leg, a healing puncture wound on the mid aspect of the foot with some old blood. No open lesions and no purulence expressed. IMPRESSION: 1. Right lower extremity cellulitis, status post puncture wound with glass. Doing much better. Culture positive for MSSA. The patient will be switched to oral Keflex 500 mg by mouth four times a day for 7 days. 2. Diabetic neuropathy. 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 The patient is up-to-date on his tetanus, which he received last week. D 3. Diabetes, moderate control with HbA1c of 8.7. The patient was advised better compliance. He is on metformin 1000 mg twice a day. PLAN: Discontinue IV vancomycin, switch to oral Keflex 500 mg by mouth four times a day. Hopefully patient can be discharged home tomorrow.
[2019-10-04] MEDS: CEPHALEXIN 500 MG CAP PO SCH (05:54)
[2019-10-04] MEDS: KETOROLAC 30 MG/ML 1ML VIAL IV PRN (05:54)
[2019-10-04 06:00] VITALS: BP 116/60
[2019-10-04] MEDS: MORPHINE 30 MG TAB **MSIR PO SCH (06:37)
[2019-10-04 06:44] LABS: HEMATOCRIT 35.2 % (42.0-52.0); HEMOGLOBIN 11.8 g/dl (13.5-17.5); MEAN CORPUSCULAR HEMOGLOBIN 31.1 pg (27.0-33.0); MEAN CORPUSCULAR HGB CONC 33.5 g/dl (32.0-36.5); MEAN CORPUSCULAR VOLUME 92.9 fl (80.0-96.0); PLATELET COUNT, AUTOMATED 211 10^3/uL (150-450); RED BLOOD COUNT 3.79 10^6/uL (4.30-6.10); WHITE BLOOD COUNT 4.7 10^3/uL (4.0-10.0)
[2019-10-04 07:03] LABS: BLOOD UREA NITROGEN 17 MG/DL (7-18); CALCIUM LEVEL 8.6 MG/DL (8.8-10.2); CARBON DIOXIDE LEVEL 30 MEQ/L (21-32); CHLORIDE LEVEL 106 MEQ/L (98-107); CREATININE FOR GFR 0.52 MG/DL (0.70-1.30); GLOMERULAR FILTRATION RATE > 60.0 (>49); GLUCOSE, FASTING 183 MG/DL (70-100); POTASSIUM SERUM 4.8 MEQ/L (3.5-5.1); SODIUM LEVEL 140 MEQ/L (136-145)
[2019-10-04] MEDS ORDERED: CEPH500C PO (07:53)
[2019-10-04] MEDS: lamoTRIgine 25 MG TAB PO SCH (08:35)
[2019-10-04] MEDS: NICOTINE 21MG/24HR 1 EA TRANSDERMAL TD SCH (08:35)
[2019-10-04] MEDS: LACTOBACILLUS ACIDOPHILUS CAP (BACID) PO SCH (08:35)
[2019-10-04] MEDS: glipiZIDE XL 5 MG TABCR PO SCH (08:35)
[2019-10-04] MEDS: metFORMIN (GLUCOPHAGE) 1000 MG TABLET PO SCH (08:35)
[2019-10-04] MEDS: ENOXAPARIN 40MG/0.4ML SYRINGE (J1650 PER 10MG) SC SCH (08:36)
[2019-10-04] MEDS: HumaLOG INSULIN (NovoLOG) PER UNIT SC SCH (08:36)
--- NOTE | 2019-10-04 10:05 | DS.PDOC ---
Discharge Summary General Date of Admission Oct 01, 2019 at 15:36 Date of Discharge 10/04/2019 Primary Care Physician: Jordy Martínez Attending Physician: GARRET LOCKHART MD Discharge Summary PROCEDURES PERFORMED DURING STAY: None. ADMITTING DIAGNOSES: 1. Penetrating wound, plantar surface right foot. 2. Right lower extremity cellulitis. 3. Diabetes mellitus. 4. Chronic neck and back pain. DISCHARGE DIAGNOSES: 1. Penetrating wound, plantar surface right foot. 2. Right lower extremity cellulitis. 3. Diabetes mellitus. 4. Chronic neck and back pain. COMPLICATIONS/CHIEF COMPLAINT: Penetrating Foot Wound. 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 Endocrine protein on the ground. He did not notice when this occurred, but realized hours later that he had glass penetrating through his slippers into his foot and he was bleeding. The following day he reported to urgent care. An x-ray showed air around the wound. He was started on clindamycin for antibiotic coverage. Over the next few days, his noticed worsening swelling of his ankle and redness traveling up his leg. He also had continued bleeding from the wound. On evaluation in the emergency department, he was found to have an elevated white blood cell count. Imaging including x-rays of the foot, CT of the foot, and ultrasound of the foot did not reveal any retained foreign body. He was admitted to the hospital for further management. HOSPITAL COURSE: The patient was admitted to the hospital and orthopedic surgery was consulted for possible debridement of the wound. Dr. Bruno and did not feel there is any for debridement or surgical intervention. Dr. Shetty of infectious disease was also consulted due to concern for air on the CT which would be concerning for necrotizing fasciitis. MRI of the ankle was also obtained at that time which was negative for osteomyelitis and concerning only for cellulitis surrounding the wound. He was initially started on vancomycin. Wound cultures grew MSSA and the patient was switched onto Keflex. Blood cultures remain negative. During the patient's admission, he was noticed at one point to have a murmur and an echocardiogram was ordered. However, the murmur was not auscultated on later evaluation. The echocardiogram was performed and the results are pending, this can be followed up on by the patient's primary care physician. Dr. Mar of podiatry was also consulted for continued wound care. The patient will follow-up with Dr. Mar in the outpatient setting. Physical therapy cleared the patient to return home. On day of discharge, the patient was found to be stable and safe discharge home to complete a 7 day cours e of Keflex. DISCHARGE MEDICATIONS: Please see below. ALLERGIES: Please see below. PHYSICAL EXAMINATION ON DISCHARGE: VITAL SIGNS: Please see below. GENERAL: Alert, comfortable, in no acute distress HEENT: Normocephalic, atraumatic, sclerae anicteric, moist mucous membranes CARDIOVASCULAR: Regular rate and rhythm, normal S1 and S2. No murmurs, rubs, or gallops RESPIRATORY: Clear to auscultation bilaterally with equal air entry bilaterally. No wheezing, rhonchi, or rales. ABDOMEN: Soft, nontender, nondistended, bowel sounds present EXTREMITIES: Trace edema in the right lower extremity extending up to the lower calf. Erythema surrounding a clean open wound on the plantar surface of the rig ht foot. Serous sanguinous drainage without purulence noted. Pulses 2/4 in bilateral DP and PT arteries. No wound, erythema, or edema noted on the LLE. NEUROLOGIC: No focal deficits appreciated PSYCHIATRIC: Mood and affect appropriate LABORATORY DATA: Please see below. IMAGING: Foot XR: Abnormal soft tissue lucencies as described above consistent with soft tissue injury. This needs to be correlated clinically. There is no evidence of a radiopaque foreign body. It should be remembered that not all forms of glass are leaded to the degree necessary to be radiographically opaque. Extremity ultrasound: Finding as described above. The echogenic foci could be either secondary to gas within the soft tissues or potentially foreign body. The echogenic foci do not cast acoustic shadows, however. Consider followup with CT. Extremity. CT: No foreign body. Scattered air densities, etiology uncertain. Consider infectious etiology with gas-producing organism. Ankle MRI: Cellulitis/myositis without organized fluid collection to suggest abscess. No MR evidence of acute osteomyelitis. Additional findings detailed in full report. PROGNOSIS: Fair ACTIVITY: As tolerated. DIET: Consistent carbohydrate DISCHARGE PLAN: Home with course of antibiotics DISPOSITION: . DISCHARGE INSTRUCTIONS: 1. Follow up with your PCP in 7-[address] Pellitier in 1 week. 2. Complete the full course of antibiotics 3. Daily foot checks and wound care 4. Your PCP can discuss your echocardiogram results with you, as they were not available at the time of discharge. 5. If your condition worsens please call your PCP or return to the ED for further evaluation ITEMS TO FOLLOWUP ON ON OUTPATIENT: 1. Right foot wound with surrounding cellulitis 2. Echocardiogram results DISCHARGE CONDITION: Stable. TIME SPENT ON DISCHARGE: Greater than 35 minutes. Attending attestation: Patient independently evaluated, agree with resident's plan. Vital Signs/I&Os Vital Signs Date Time Temp Pulse Resp B/P (MAP) Pulse Ox O2 Delivery O2 Flow Rate FiO2 10/04/19 06:37 18 95 Room Air 10/04/19 06:00 97.5 57 116/60 (78) I&O- Last 24 Hours up to 6 AM 10/04/19 05:59 Intake Total 933 ml Output Total 150 ml Balance 783 ml Laboratory Data Labs 24H Laboratory Tests 2 10/03/19 11:39: Bedside Glucose (Misc Panel) 204H 10/03/19 16:28: Bedside Glucose (Misc Panel) 134H 10/03/19 19:50: Bedside Glucose (Misc Panel) 308H 10/04/19 05:49: Nucleated Red Blood Cells % (auto) 0.0, Anion Gap 4L, Glomerular Filtration Rate > 60.0, Calcium Level 8.6L CBC/BMP Laboratory Tests 10/04/19 05:49 FSBS Laboratory Tests Test 10/03/19 11:39 10/03/19 16:28 10/03/19 19:50 Range/Units Bedside Glucose (Misc Panel) 204 134 308 80-115 MG/DL Microbiology Microbiology 10/02/19 Blood Culture - Preliminary, Resulted No growth after 24 hours . All specim... 10/02/19 Blood Culture - Preliminary, Resulted No growth after 24 hours . All specim... 10/01/19 Gram Stain - Final, Complete 10/01/19 Wound Culture - Final, Complete Staphylococcus Aureus Discharge Medications Scheduled Alprazolam (Xanax) 0.5 Mg Tab, 0.5 MG PO QHS, (Reported) Cephalexin (Cephalexin) 500 Mg Capsule, 500 MG PO Q6H Glipizide (Glipizide ER) 10 Mg Tab.er.24, 10 MG PO DAILY, (Reported) Lamotrigine (Lamotrigine) 25 Mg Tablet, 25 MG PO BID, (Reported) Lisinopril/Hydrochlorothiazide (Lisinopril-Hctz 20-12.5 mg Tab) 1 Tab Tab, 1 TAB PO QHS, (Reported) Magnesium Oxide (Magnesium Oxide) 250 Mg Tab, 250 MG PO BID, (Reported) Metformin HCl (Metformin HCl) 1,000 Mg Tab, 1,000 MG PO BID, (Reported) Morphine Sulfate (Morphine Sulfate) 30 Mg Tab, 30 MG PO BID, (Reported) TAKES 0800/1400 Morphine Sulfate (Morphine Sulfate ER) 15 Mg Tablet.er, 15 MG PO BID, (Reported) TAKES AT 1900/HS Allergies Coded Allergies: DYE'S (COLOR'S NOT IODINATED) (Verified Adverse Reaction, Mild, NV, 05/21/18) milnacipran (Verified Adverse Reaction, Mild, STOMACH ACHE, CONSTIPATION, 10/01/19) KEVIN MAYEN D.O. Oct 04, 2019 10:05 GARRET LOCKHART MD Oct 04, 2019 10:41
--- NOTE | 2019-10-04 11:07 | IPN ---
DATE: 10/03/2019 CHIEF COMPLAINT: The patient seen for evaluation of laceration on the plantar aspect of his right foot. The patient states that approximately Sunday he stepped on a piece of glass. The patient was walking on this area for several days and then noticed that glass was present in his shoe. Subsequently had swelling of his foot. The patient states that he had his foot cleaned in a walk in clinic with irrigation and debridement, was placed on antibiotics. Had continued swelling and was subsequently admitted to the hospital. PAST MEDICAL HISTORY: 1. Type 2 diabetes. 2. Peripheral neuropathy. 3. Hypertension. 4. Nicotine dependence. 5. Hypercholesterolemia. 6. Chronic polyps. ALLERGIES: MOBIC and IVP DYE. SURGICAL HISTORY: Colonoscopy. PHYSICAL EXAMINATION: Revealed an alert, well oriented, 64-year-old male in no acute distress. Evaluation of his foot reveals a laceration present on the right central arch. There is some dark discoloration around the central laceration. Pre-debridement ulceration measures 4 mm in width, 5 mm in length and 11 mm in depth. After appropriate time out and consent, utilizing a Cui dermal curette, excisional debridement was obtained through the subcutaneous tissues. The wound was explored down through the plantar fascia, no foreign bodies could be seen. There was no purulence in the wound. Post debridement measurements, the length is 7 mm, 4 mm in width and 11 mm in depth. Plantar right arch. A dry sterile dressing was applied today. Discussed with the patient starting tomorrow, he can switch to a foam dressing. He can bear weight on his right foot to try to place most of the weight on the heel. The patient states he has difficulty using walker or crutches. LABORATORY STUDIES: Reveal a white count of 4.7, PSR of 37, glomerular filtration rate (GFR) greater than 60, fasting glucose 219, C-reactive protein (CRP) on admission was 7.0, but reduced the following day to 4.78. ASSESSMENT: Laceration, plantar surface right foot, resulting in infection. PLAN: Excisional debridement of the right foot as described. I discussed with the patient local wound care consisting of foam dressing to the right foot. Discussed with the patient while working, would recommend utilizing a work boot. The patient's culture revealed growth of Staphylococcus aureus sensitive to oxacillin. Hospitalist can cover his antibiotic therapy. However, Augmentin 875 mg twice a day for 10 days should provide sufficient coverage. His questions are answered.
--- NOTE | 2019-10-04 13:19 | ECHO ---
DATE OF PROCEDURE: 10/03/2019 DATE OF : 1955 REFERRING PROVIDER: Dr. Perla Cifuentes PATIENT LOCATION: Room 4236 REASON FOR THE STUDY: . 2-D MEASUREMENTS: IVS: 1.0 cm LV: 4.4 cm LVPW: 1.0 cm LA: 3.8 cm Aorta: 3.0 cm IVC: 2.4 cm DOPPLER MEASUREMENTS: Peak velocity across the aortic valve: 1.3 m/s Peak velocity across the LVOT: 0.96 m/s Mitral E: 0.94, Mitral A: 0.79 with a ratio of greater than 1.0 Maximum tricuspid valve velocity: 2.6 m/s 2-D COMMENTS: 1. Normal left ventricular size, wall thickness and normal global left ventricular systolic function. The estimated left ventricular systolic ejection fraction is 60-65%. 2. Normal left atrium. Normal right atrium and right ventricle. 3. The findings at the level of the atrial septum that is probably related to lipomatous hypertrophy. There is a drop off of the atrial septum noted at the level of the fossa ovalis that could represent patent foramen ovale (PFO) or an atrial septal defect (ASD). 4. Normal aortic root. 5. No pericardial effusion seen. 6. Minimally calcified aortic valve with normal leaflet excursion. Normal mitral valve, tricuspid valve. The pulmonic valve and proximal pulmonary artery branches were not well visualized. 7. The inferior vena cava was mildly enlarged. Central venous pressure might be elevated. DOPPLER. It detects trace mitral regurgitation and mild tricuspid regurgitation. The calculated pulmonary artery systolic pressure varies between 30-40 mmHg. Assessment of the left ventricular diastolic function appeared to be normal. IMPRESSION: 1. Normal global left ventricular systolic and diastolic function. 2. Aortic valve sclerosis without stenosis or aortic radiation. 3. Trace mitral regurgitation. 4. Mild tricuspid regurgitation with probably mild pulmonary hypertension. 5. There are features consistent with elevated central venous pressure, the inferior vena cava was mildly enlarged. 6. Lipomatous atrial septum was noted with possible PFO or a small ASD. I doubt is an ASD/atrial septal defect. I recommend a transesophageal echocardiogram for further evaluation. He also may benefit from a bubble study.
== END 2019-10-04 10:48 | disposition home or self-care (01) | DRG 383 ==
LOC: M ED 10:47 → M ED INP 15:36 → ENRESERV 10-02 13:04 → M MSPAV 10-02 15:20
PROVIDERS: ADMIT General Practice; ATTEND Internal Medicine
DX: L03.115 Cellulitis of right lower limb (principal); E11.42 Type 2 diabetes mellitus with diabetic polyneuropathy; I11.9 Hypertensive heart disease without heart failure; S91.331A Puncture wound without foreign body, right foot, initial encounter; E11.319 Type 2 diabetes mellitus with unspecified diabetic retinopathy without macular edema; W25.XXXA Contact with sharp glass, initial encounter; Y92.59 Other trade areas as the place of occurrence of the external cause; Y99.8 Other external cause status; Y93.89 Activity, other specified; M54.2 Cervicalgia; R01.1 Cardiac murmur, unspecified; F17.210 Nicotine dependence, cigarettes, uncomplicated; E78.00 Pure hypercholesterolemia, unspecified; Z79.891 Long term (current) use of opiate analgesic; Z86.010 Personal history of colon polyps; Z91.041 Radiographic dye allergy status; Z88.8 Allergy status to other drugs, medicaments and biological substances; Z79.84 Long term (current) use of oral hypoglycemic drugs; Z79.899 Other long term (current) drug therapy; B95.61 Methicillin susceptible Staphylococcus aureus infection as the cause of diseases classified elsewhere

== ENCOUNTER → 2019-12-10 | Outpatient (CLI) | payer OTHER ==
[~2019-12-10] MED LIST changes: +CEPH500C PO; +CLEO300C2 PO; +LAMO25TA4 PO; -LISI20TA19 PO; +LISI20TA35 PO; +MORP-69 PO
== END ==
LOC: M PAIN 14:04
PROVIDERS: ATTEND Family Medicine
DX: M54.2 Cervicalgia (principal); G89.29 Other chronic pain; E11.9 Type 2 diabetes mellitus without complications; F17.210 Nicotine dependence, cigarettes, uncomplicated; Z88.8 Allergy status to other drugs, medicaments and biological substances; Z79.84 Long term (current) use of oral hypoglycemic drugs; Z79.899 Other long term (current) drug therapy

== ENCOUNTER → 2020-02-17 | Outpatient (CLI) | payer OTHER ==
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
== END ==
LOC: M PAIN 11:15
PROVIDERS: ATTEND Family Medicine
DX: M54.2 Cervicalgia (principal); G89.29 Other chronic pain; E11.40 Type 2 diabetes mellitus with diabetic neuropathy, unspecified; F17.210 Nicotine dependence, cigarettes, uncomplicated; Z88.6 Allergy status to analgesic agent; Z91.041 Radiographic dye allergy status; Z79.84 Long term (current) use of oral hypoglycemic drugs; Z79.891 Long term (current) use of opiate analgesic; Z79.899 Other long term (current) drug therapy

== ENCOUNTER → 2020-03-02 | Outpatient (REF) | payer OTHER ==
[2020-03-02 14:38] LABS: BASO % 0.4 % (0.0-1.0); EOS # 0.1 10^3/uL (0.0-0.5); HEMATOCRIT 46.8 % (42.0-52.0); HEMOGLOBIN 15.1 g/dl (13.5-17.5); LYMPH # 1.4 10^3/uL (1.5-5.0); LYMPH % 19.3 % (24.0-44.0); MEAN CORPUSCULAR HEMOGLOBIN 29.9 pg (27.0-33.0); MEAN CORPUSCULAR HGB CONC 32.3 g/dl (32.0-36.5); MEAN CORPUSCULAR VOLUME 92.7 fl (80.0-96.0); MONO # 0.5 10^3/uL (0.0-0.8); MONO % 6.9 % (0.0-5.0); NEUTROPHILS # 5.2 10^3/uL (1.5-8.5); NEUTROPHILS % 72.1 % (36.0-66.0); PLATELET COUNT, AUTOMATED 255 10^3/uL (150-450); RED BLOOD COUNT 5.05 10^6/uL (4.30-6.10); WHITE BLOOD COUNT 7.2 10^3/uL (4.0-10.0)
[2020-03-02 14:59] LABS: HEMOGLOBIN A1c 8.2 %
[2020-03-02 15:19] LABS: ALBUMIN 4.1 GM/DL (3.2-5.2); ALT/SGPT 19 U/L (12-78); BILIRUBIN,TOTAL 0.4 MG/DL (0.2-1.0); BLOOD UREA NITROGEN 23 MG/DL (7-18); CALCIUM LEVEL 9.4 MG/DL (8.8-10.2); CARBON DIOXIDE LEVEL 32 MEQ/L (21-32); CHLORIDE LEVEL 103 MEQ/L (98-107); CHOLESTEROL LEVEL 160 MG/DL (<200); CREATININE FOR GFR 0.63 MG/DL (0.70-1.30); CREATININE, URINE 74.5 MG/DL; GLOMERULAR FILTRATION RATE > 60.0 (>49); GLUCOSE, FASTING 146 MG/DL (70-100); HDL CHOLESTEROL 50 MG/DL (>40); LDL CHOLESTEROL 91 MG/DL (<100); MAGNESIUM LEVEL 2.2 MG/DL (1.8-2.4); MAU/CREAT RATIO 249.6 MCG/MG (0.0-30.0); NON-HDL-C 110 MG/DL; POTASSIUM SERUM 4.7 MEQ/L (3.5-5.1); SODIUM LEVEL 137 MEQ/L (136-145); TOTAL PROTEIN 7.4 GM/DL (6.4-8.2); TRIGLYCERIDES LEVEL 96 MG/DL (<150)
[2020-03-02 15:21] LABS: FOLATE 12.7 NG/ML; VITAMIN B12 LEVEL 416 PG/ML
== END ==
LOC: M SFHCPLAZ 08:59
PROVIDERS: ATTEND Internal Medicine
DX: I10 Essential (primary) hypertension (principal); E11.40 Type 2 diabetes mellitus with diabetic neuropathy, unspecified; E78.00 Pure hypercholesterolemia, unspecified; Z86.010 Personal history of colon polyps; R63.4 Abnormal weight loss

== ENCOUNTER → 2020-03-16 | Outpatient (CLI) | payer OTHER ==
--- NOTE | 2020-03-16 13:26 | REP ---
INDICATION: DISORDERS OF LUNG NICOTINE DEPEND COMPARISON: 11/12/2018 TECHNIQUE: Axial noncontrast images from the thoracic inlet to the upper abdomen with coronal and sagittal reformations. This CT examination was performed using the following dose reduction techniques: Automated exposure control, adjustment of mA and/or kv according to the patient's size, and use of iterative reconstruction technique. FINDINGS: Bilateral lung perez are well aerated. Few scattered primarily subpleural and peripheral nodular densities measuring up to 4 mm remains stable. No acute consolidation, significant nodule or mass lesion identified. Tracheobronchial tree is patent with a small amount of mucus extending into the left lower lobe bronchus. No effusion. No pneumothorax. No adenopathy. Atherosclerotic changes to the aorta and coronary arteries noted without aortic aneurysm or cardiomegaly. No pericardial effusion. Musculoskeletal structures demonstrate degenerative changes without acute osseous abnormality. Limited upper abdomen demonstrates distended gallbladder with layering sludge. IMPRESSION: 1. Few noncalcified nodules up to 4 mm remains stable. No significant acute mediastinal or pleuroparenchymal process appreciated. 2. Small amount of mucous plugging in the left lower lobe bronchi. 3. Distended gallbladder with layering sludge. <Electronically signed by Cristhian Vasquez > 03/16/20 1807
== END ==
LOC: M RAD 12:12
PROVIDERS: ATTEND Internal Medicine
DX: J98.4 Other disorders of lung (principal); F17.210 Nicotine dependence, cigarettes, uncomplicated

== ENCOUNTER → 2020-03-16 | Outpatient (CLI) | payer OTHER ==
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
== END ==
LOC: M PAIN 10:30
PROVIDERS: ATTEND Family Medicine
DX: M54.2 Cervicalgia (principal); G89.29 Other chronic pain; E11.40 Type 2 diabetes mellitus with diabetic neuropathy, unspecified; F17.210 Nicotine dependence, cigarettes, uncomplicated; Z88.6 Allergy status to analgesic agent; Z91.041 Radiographic dye allergy status; Z79.84 Long term (current) use of oral hypoglycemic drugs; Z79.891 Long term (current) use of opiate analgesic; Z79.899 Other long term (current) drug therapy

== ENCOUNTER → 2020-04-15 | Outpatient (CLI) | payer OTHER ==
[~2020-04-15] MED LIST changes: +GABA-282 PO; -GABA-843 PO
== END ==
LOC: M LABSMTC 10:17
PROVIDERS: ATTEND Anesthesiology
DX: Z01.812 Encounter for preprocedural laboratory examination (principal); Z20.822 Contact with and (suspected) exposure to COVID-19

== ENCOUNTER 2020-04-20 06:47 | Day surgery (SDC) | payer OTHER ==
[~2020-04-20] VITALS: Ht 177.8 cm; Wt 68.9 kg
[2020-04-20] MEDS ORDERED: NS 1,000 ML IV ONE (07:00)
[2020-04-20] MEDS ORDERED: LIDOCAINE 2% 100MG/5ML SDV (FOR ANES.) As Ordered ONE (07:03)
[2020-04-20] MEDS ORDERED: propofoL 200 MG/20 ML VIAL As Ordered ONE (07:03)
[2020-04-20] MEDS ORDERED: SIMETHICONE 40MG/0.6ML DROPS 30ML As Ordered ONE (07:06)
[2020-04-20] MEDS ORDERED: ePHEDrine SULFATE 25 MG/5 ML(5MG/ML) SYRINGE As Ordered ONE (08:22)
[2020-04-20] MEDS ORDERED: fentaNYL 100 MCG/2 ML INJECTION (J3010) As Ordered ONE (08:26)
--- NOTE | 2020-04-20 08:46 | ROOR ---
Patient Name: Francisco Begum Procedure Date: 04/20/2020 8:04 AM Date of : 1955 Age: 64 Room: [facility] Gender: Male Note Status: Finalized Procedure: Colonoscopy Indications: High risk colon cancer surveillance: Personal history of colonic polyps, Multiple previous suboptimal/poor preps Providers: Edu HINTON MD Referring MD: Jordy Martínez MD Requesting Provider: Medicines: Monitored Anesthesia Care Complications: No immediate complications. Procedure: Pre-Anesthesia Assessment: - The heart rate, respiratory rate, oxygen saturations, blood pressure, adequacy of pulmonary ventilation, and response to care were monitored throughout the procedure. The Colonoscope was introduced through the anus and advanced to the terminal ileum, with identification of the appendiceal orifice and IC valve. The colonoscopy was somewhat difficult due to a redundant colon. Successful completion of the procedure was aided by applying abdominal pressure. The patient tolerated the procedure well. The quality of the bowel preparation was good. The bowel preparation used was GoLYTELY via "Neurogenic" prep instructions (8 liters). Findings: The perianal and digital rectal examinations were normal. Multiple medium-mouthed diverticula were found in the sigmoid colon. Small Internal Hemorrhoids. The colon (entire examined portion) was redundant. The exam was otherwise without abnormality on direct and retroflexion views. Impression: - Moderate diverticulosis in the sigmoid colon. - Small Internal Hemorrhoids. - Redundant colon. - The examination was otherwise normal on direct and retroflexion views. - No specimens collected. Recommendation: - Repeat colonoscopy in 5 years for surveillance. - (for future colonoscopy will again use neurogenic (8 L) PEG prep.) Procedure Code(s): --- Professional --- 79044, Colonoscopy, flexible; diagnostic, including collection of specimen(s) by brushing or washing, when performed (separate procedure) Diagnosis Code(s): --- Professional --- Q43.8, Other specified congenital malformations of intestine K57.30, Diverticulosis of large intestine without perforation or abscess without bleeding Z86.010, Personal history of colonic polyps CPT copyright 2019 [employer]. All rights reserved. The codes documented in this report are preliminary and upon braille coder review may be revised to meet current compliance requirements. Edu Hinton MD Edu HINTON MD 04/20/2020 8:45:26 AM Electronically signed by Edu HINTON MD Number of Addenda: 0 Note Initiated On: 04/20/2020 8:04 AM Estimated Blood Loss: Estimated blood loss: none.
[2020-04-20 09:00] VITALS: BP 142/78
== END 2020-04-20 09:09 | disposition home or self-care (01) ==
LOC: M OPP 06:47
PROVIDERS: ATTEND Internal Medicine Gastroenterology
DX: Z12.11 Encounter for screening for malignant neoplasm of colon (principal); Z86.010 Personal history of colon polyps; K64.8 Other hemorrhoids; Q43.8 Other specified congenital malformations of intestine; I10 Essential (primary) hypertension; E11.9 Type 2 diabetes mellitus without complications; M19.90 Unspecified osteoarthritis, unspecified site; G43.909 Migraine, unspecified, not intractable, without status migrainosus; G62.9 Polyneuropathy, unspecified; F17.210 Nicotine dependence, cigarettes, uncomplicated; R25.2 Cramp and spasm; Z91.09 Other allergy status, other than to drugs and biological substances; Z79.84 Long term (current) use of oral hypoglycemic drugs; Z79.899 Other long term (current) drug therapy; Z80.42 Family history of malignant neoplasm of prostate
CPT/HCPCS: 45378; J3010

== ENCOUNTER → 2020-06-15 | Outpatient (CLI) | payer OTHER ==
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
== END ==
LOC: M PAIN 10:30
PROVIDERS: ATTEND Family Medicine
DX: M54.2 Cervicalgia (principal); G89.29 Other chronic pain; E11.40 Type 2 diabetes mellitus with diabetic neuropathy, unspecified; Z88.6 Allergy status to analgesic agent; Z91.041 Radiographic dye allergy status; Z79.84 Long term (current) use of oral hypoglycemic drugs; Z79.891 Long term (current) use of opiate analgesic; Z79.899 Other long term (current) drug therapy

== ENCOUNTER → 2020-09-14 | Outpatient (CLI) | payer OTHER ==
[~2020-09-14] MED LIST changes: +GABA-283 PO; -GABA-845 PO
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
== END ==
LOC: M PAIN 10:30
PROVIDERS: ATTEND Family Medicine
DX: M54.2 Cervicalgia (principal); G89.29 Other chronic pain; E11.40 Type 2 diabetes mellitus with diabetic neuropathy, unspecified; F17.210 Nicotine dependence, cigarettes, uncomplicated; Z88.6 Allergy status to analgesic agent; Z88.7 Allergy status to serum and vaccine; Z91.041 Radiographic dye allergy status; Z79.84 Long term (current) use of oral hypoglycemic drugs; Z79.891 Long term (current) use of opiate analgesic; Z79.899 Other long term (current) drug therapy

== ENCOUNTER → 2020-09-16 | Outpatient (CLI) | payer OTHER ==
[2020-09-16 20:11] LABS: BASO # 0.1 10^3/uL (0.0-0.2); BASO % 0.7 % (0.0-1.0); EOS # 0.1 10^3/uL (0.0-0.5); EOS % 1.2 % (0.0-3.0); HEMATOCRIT 45.2 % (42.0-52.0); HEMOGLOBIN 14.9 g/dl (13.5-17.5); LYMPH # 1.9 10^3/uL (1.5-5.0); LYMPH % 28.7 % (24.0-44.0); MEAN CORPUSCULAR HEMOGLOBIN 30.6 pg (27.0-33.0); MEAN CORPUSCULAR VOLUME 92.8 fl (80.0-96.0); MONO # 0.5 10^3/uL (0.0-0.8); MONO % 6.9 % (2.0-8.0); NEUTROPHILS # 4.2 10^3/uL (1.5-8.5); NEUTROPHILS % 62.2 % (36.0-66.0); PLATELET COUNT, AUTOMATED 233 10^3/uL (150-450); RED BLOOD COUNT 4.87 10^6/uL (4.30-6.10); WHITE BLOOD COUNT 6.8 10^3/uL (4.0-10.0)
[2020-09-16 20:37] LABS: ALBUMIN 4.1 GM/DL (3.2-5.2); ALT/SGPT 20 U/L (12-78); BILIRUBIN,TOTAL 0.3 MG/DL (0.2-1.0); BLOOD UREA NITROGEN 18 MG/DL (7-18); CALCIUM LEVEL 9.6 MG/DL (8.8-10.2); CARBON DIOXIDE LEVEL 33 MEQ/L (21-32); CHLORIDE LEVEL 101 MEQ/L (98-107); GLOMERULAR FILTRATION RATE > 60.0 (>49); GLUCOSE, FASTING 192 MG/DL (70-100); POTASSIUM SERUM 4.5 MEQ/L (3.5-5.1); SODIUM LEVEL 139 MEQ/L (136-145); TOTAL PROTEIN 7.5 GM/DL (6.4-8.2)
== END ==
LOC: M WUC 15:48
PROVIDERS: ATTEND Physician Assistant
DX: R19.7 Diarrhea, unspecified (principal)

== ENCOUNTER → 2020-12-22 | Outpatient (CLI) | payer OTHER | LOC: M PAIN 10:30 | PROVIDERS: ATTEND Anesthesiology | DX: M54.2 Cervicalgia (principal); M79.18 Myalgia, other site; E11.42 Type 2 diabetes mellitus with diabetic polyneuropathy; I10 Essential (primary) hypertension; F17.210 Nicotine dependence, cigarettes, uncomplicated; E78.00 Pure hypercholesterolemia, unspecified; Z79.891 Long term (current) use of opiate analgesic; Z79.84 Long term (current) use of oral hypoglycemic drugs; Z79.899 Other long term (current) drug therapy; Z88.6 Allergy status to analgesic agent; Z88.7 Allergy status to serum and vaccine; Z91.041 Radiographic dye allergy status ==

== ENCOUNTER → 2021-01-06 | Outpatient (CLI) | payer OTHER | LOC: M PLAIMG 10:20 | PROVIDERS: ATTEND Anesthesiology | DX: M54.2 Cervicalgia (principal); Z53.8 Procedure and treatment not carried out for other reasons ==

== ENCOUNTER → 2021-02-01 | Outpatient (CLI) | payer OTHER ==
[2021-02-01 10:32] LABS: HEMATOCRIT 46.9 % (42.0-52.0); HEMOGLOBIN 15.4 g/dl (13.5-17.5); MEAN CORPUSCULAR HEMOGLOBIN 30.7 pg (27.0-33.0); MEAN CORPUSCULAR HGB CONC 32.8 g/dl (32.0-36.5); MEAN CORPUSCULAR VOLUME 93.6 fl (80.0-96.0); PLATELET COUNT, AUTOMATED 279 10^3/uL (150-450); RED BLOOD COUNT 5.01 10^6/uL (4.30-6.10)
[2021-02-01 12:26] LABS: ALBUMIN 3.7 GM/DL (3.2-5.2); ALT/SGPT 24 U/L (12-78); BILIRUBIN,TOTAL 0.3 MG/DL (0.2-1.0); BLOOD UREA NITROGEN 19 MG/DL (7-18); CALCIUM LEVEL 9.6 MG/DL (8.8-10.2); CARBON DIOXIDE LEVEL 34 MEQ/L (21-32); CHLORIDE LEVEL 103 MEQ/L (98-107); CHOLESTEROL LEVEL 154 MG/DL (<200); CHOLESTEROL RISK RATIO 3.666 (<5); CREATININE FOR GFR 0.69 MG/DL (0.70-1.30); GLOMERULAR FILTRATION RATE > 60.0 (>49); GLUCOSE, FASTING 237 MG/DL (70-100); HDL CHOLESTEROL 42 MG/DL (>40); LDL CHOLESTEROL 88 MG/DL (<100); MAGNESIUM LEVEL 2.2 MG/DL (1.8-2.4); NON-HDL-C 112 MG/DL; POTASSIUM SERUM 4.7 MEQ/L (3.5-5.1); SODIUM LEVEL 141 MEQ/L (136-145); TOTAL PROTEIN 7.3 GM/DL (6.4-8.2); TRIGLYCERIDES LEVEL 118 MG/DL (<150)
[2021-02-01 13:09] LABS: CREATININE, URINE 54.1 MG/DL; MAU/CREAT RATIO 295.7 MCG/MG (0.0-30.0)
[2021-02-01 13:10] LABS: HEPATITIS C VIRUS ABY INDEX 0.1 INDEX (<0.8)
[2021-02-01 16:06] LABS: HEMOGLOBIN A1c 9.1 %
== END ==
LOC: M WUC 08:11
PROVIDERS: ATTEND Internal Medicine
DX: Z11.59 Encounter for screening for other viral diseases (principal); E78.00 Pure hypercholesterolemia, unspecified; Z86.010 Personal history of colon polyps; E11.40 Type 2 diabetes mellitus with diabetic neuropathy, unspecified; I10 Essential (primary) hypertension

== ENCOUNTER → 2021-02-09 | Outpatient (CLI) | payer OTHER | LOC: M PAIN 11:15 | PROVIDERS: ATTEND Anesthesiology | DX: M54.2 Cervicalgia (principal); M79.18 Myalgia, other site; E11.42 Type 2 diabetes mellitus with diabetic polyneuropathy; I10 Essential (primary) hypertension; F17.210 Nicotine dependence, cigarettes, uncomplicated; E78.00 Pure hypercholesterolemia, unspecified; Z79.891 Long term (current) use of opiate analgesic; J98.4 Other disorders of lung; Z79.84 Long term (current) use of oral hypoglycemic drugs; Z79.899 Other long term (current) drug therapy; Z88.6 Allergy status to analgesic agent; Z88.7 Allergy status to serum and vaccine; Z91.041 Radiographic dye allergy status ==

== ENCOUNTER → 2021-02-16 | Outpatient (CLI) | payer OTHER | LOC: M LABSMTC 11:00 | PROVIDERS: ATTEND Anesthesiology | DX: Z01.812 Encounter for preprocedural laboratory examination (principal); Z20.822 Contact with and (suspected) exposure to COVID-19 ==

== ENCOUNTER → 2021-02-22 | Outpatient (CLI) | payer OTHER ==
[~2021-02-22] MED LIST changes: +BUPIVACAINE HCL 0.25% 10ML VIAL As Ordered ONE; +BUPIVACAINE HCL 0.25% 30ML VIAL As Ordered ONE; +TRIAMCINOLONE ACETONIDE SUSP 40 MG/ML VIAL (J3301) As Ordered ONE
== END ==
LOC: M PAIN 08:30
PROVIDERS: ATTEND Anesthesiology
DX: M79.18 Myalgia, other site (principal); F17.210 Nicotine dependence, cigarettes, uncomplicated; M54.2 Cervicalgia; E11.42 Type 2 diabetes mellitus with diabetic polyneuropathy; I10 Essential (primary) hypertension; J98.4 Other disorders of lung; E78.00 Pure hypercholesterolemia, unspecified; Z79.891 Long term (current) use of opiate analgesic; Z79.84 Long term (current) use of oral hypoglycemic drugs; Z79.899 Other long term (current) drug therapy; Z88.1 Allergy status to other antibiotic agents; Z88.7 Allergy status to serum and vaccine; Z91.041 Radiographic dye allergy status
CPT/HCPCS: 20552; J3301

== ENCOUNTER → 2021-04-29 | Outpatient (CLI) | payer OTHER ==
[~2021-04-29] MED LIST changes: -BUPIVACAINE HCL 0.25% 10ML VIAL As Ordered ONE; -BUPIVACAINE HCL 0.25% 30ML VIAL As Ordered ONE; -TRIAMCINOLONE ACETONIDE SUSP 40 MG/ML VIAL (J3301) As Ordered ONE
== END ==
LOC: M PAIN 09:45
PROVIDERS: ATTEND Anesthesiology
DX: M54.2 Cervicalgia (principal); M79.10 Myalgia, unspecified site; M79.18 Myalgia, other site; E11.42 Type 2 diabetes mellitus with diabetic polyneuropathy; I10 Essential (primary) hypertension; F17.210 Nicotine dependence, cigarettes, uncomplicated; E78.00 Pure hypercholesterolemia, unspecified; Z79.891 Long term (current) use of opiate analgesic; Z79.899 Other long term (current) drug therapy; Z79.84 Long term (current) use of oral hypoglycemic drugs; Z88.7 Allergy status to serum and vaccine; Z88.1 Allergy status to other antibiotic agents; Z91.041 Radiographic dye allergy status

== ENCOUNTER → 2021-07-26 | Outpatient (CLI) | payer OTHER ==
[2021-07-26 11:47] LABS: ALBUMIN 4.1 GM/DL (3.2-5.2); ALT/SGPT 25 U/L (12-78); BILIRUBIN,TOTAL 0.3 MG/DL (0.2-1.0); BLOOD UREA NITROGEN 18 MG/DL (7-18); CALCIUM LEVEL 9.6 MG/DL (8.8-10.2); CARBON DIOXIDE LEVEL 33 MEQ/L (21-32); CHLORIDE LEVEL 104 MEQ/L (98-107); CREATININE FOR GFR 0.71 MG/DL (0.70-1.30); GLOMERULAR FILTRATION RATE > 60.0 (>49); GLUCOSE, FASTING 281 MG/DL (70-100); MAGNESIUM LEVEL 2.4 MG/DL (1.8-2.4); POTASSIUM SERUM 4.7 MEQ/L (3.5-5.1); SODIUM LEVEL 141 MEQ/L (136-145); TOTAL PROTEIN 7.7 GM/DL (6.4-8.2)
[2021-07-26 11:50] LABS: HEMOGLOBIN A1c 11.6 %
[2021-07-26 12:20] LABS: CREATININE, URINE 31.1 MG/DL; MAU/CREAT RATIO 1289.3 MCG/MG (0.0-30.0)
== END ==
LOC: M PLALAB 07:45
PROVIDERS: ATTEND Internal Medicine
DX: E11.40 Type 2 diabetes mellitus with diabetic neuropathy, unspecified (principal); I10 Essential (primary) hypertension

== ENCOUNTER → 2021-09-07 | Outpatient (CLI) | payer OTHER | LOC: M PAIN 10:30 | PROVIDERS: ATTEND Nurse Practitioner Family | DX: M54.2 Cervicalgia (principal); G89.29 Other chronic pain; E11.40 Type 2 diabetes mellitus with diabetic neuropathy, unspecified; F17.210 Nicotine dependence, cigarettes, uncomplicated; Z88.6 Allergy status to analgesic agent; Z88.7 Allergy status to serum and vaccine; Z91.041 Radiographic dye allergy status; Z79.84 Long term (current) use of oral hypoglycemic drugs; Z79.891 Long term (current) use of opiate analgesic; Z79.899 Other long term (current) drug therapy ==

== ENCOUNTER 2021-12-22 12:03 | Emergency (ER) | payer OTHER, MEDICARE ==
[~2021-12-22] VITALS: Ht 177.8 cm; Wt 69.1 kg
[~2021-12-22 12:03] MED LIST changes: -FARX1TAB3 PO; -LISI10TA22 PO; -TRAZ-252 PO
[2021-12-22] MEDS ORDERED: TRAZ-252 PO (13:08)
[2021-12-22] MEDS ORDERED: FARX1TAB3 PO (13:08)
[2021-12-22] MEDS ORDERED: LISI10TA22 PO (13:08)
[2021-12-22 13:44] VITALS: BP 130/75
== END 2021-12-22 13:46 | disposition home or self-care (01) ==
LOC: M ED 12:03
DX: S09.90XA Unspecified injury of head, initial encounter (principal); F17.200 Nicotine dependence, unspecified, uncomplicated; W01.0XXA Fall on same level from slipping, tripping and stumbling without subsequent striking against object, initial encounter

== ENCOUNTER → 2021-12-22 | Outpatient (CLI) | payer OTHER, MEDICARE ==
[~2021-12-22] MED LIST changes: +FARX1TAB3 PO; +LISI10TA22 PO; +TRAZ-252 PO
== END ==
LOC: M PAIN 10:30
PROVIDERS: ATTEND Nurse Practitioner Family
DX: M54.2 Cervicalgia (principal); G89.29 Other chronic pain; E11.40 Type 2 diabetes mellitus with diabetic neuropathy, unspecified; I10 Essential (primary) hypertension; F17.210 Nicotine dependence, cigarettes, uncomplicated; Z88.6 Allergy status to analgesic agent; Z88.7 Allergy status to serum and vaccine; Z91.041 Radiographic dye allergy status; Z79.84 Long term (current) use of oral hypoglycemic drugs; Z79.891 Long term (current) use of opiate analgesic; Z79.899 Other long term (current) drug therapy

== ENCOUNTER → 2022-03-29 | Outpatient (CLI) | payer MEDICARE ==
[~2022-03-29] MED LIST changes: +FARX1TAB3 PO; +LISI10TA22 PO; +TRAZ-252 PO
[2022-03-29 15:18] LABS: ALBUMIN 3.3 G/DL (3.2-5.2); ALKALINE PHOSPHATASE 63 U/L (46-116); ALT/SGPT 19 U/L (7.0-40); AST/SGOT 18 U/L (<34); BILIRUBIN,TOTAL 0.3 MG/DL (0.3-1.2); BLOOD UREA NITROGEN 20 MG/DL (9-23); CARBON DIOXIDE LEVEL 34 MMOL/L (20-31); CHLORIDE LEVEL 98 MMOL/L (98-107); CHOLESTEROL LEVEL 125 MG/DL (<200); CHOLESTEROL RISK RATIO 2.82 (<5); CREATININE FOR GFR 0.51 MG/DL (0.70-1.30); GLOMERULAR FILTRATION RATE > 60.0 (>49); GLUCOSE, FASTING 252 MG/DL (74-106); HDL CHOLESTEROL 44.2 MG/DL (>40); LDL CHOLESTEROL 63.4 MG/DL (<100); NON-HDL-C 81 MG/DL; SODIUM LEVEL 136 MMOL/L (136-145); TOTAL PROTEIN 6.6 G/DL (5.7-8.2); TRIGLYCERIDES LEVEL 87 MG/DL (<150)
[2022-03-29 15:24] LABS: CREATININE, URINE 67.2 MG/DL
[2022-03-29 15:25] LABS: MAU/CREAT RATIO 556.5 MCG/MG (0.0-30.0)
[2022-03-29 16:10] LABS: HEMOGLOBIN A1c 12.3 % (4.0-6.0)
== END ==
LOC: M PLALAB 11:27
PROVIDERS: ATTEND Family Medicine
DX: E11.40 Type 2 diabetes mellitus with diabetic neuropathy, unspecified (principal); I10 Essential (primary) hypertension; E78.00 Pure hypercholesterolemia, unspecified

== ENCOUNTER → 2022-03-29 | Outpatient (REF) | payer MEDICARE | LOC: M SFHCPLAZ 11:07 | PROVIDERS: ATTEND Family Medicine | DX: Z53.9 Procedure and treatment not carried out, unspecified reason (principal) ==

== ENCOUNTER → 2022-03-30 | Outpatient (CLI) | payer MEDICARE | LOC: M PAIN 09:15 | PROVIDERS: ATTEND Nurse Practitioner Family | DX: M54.2 Cervicalgia (principal); Z79.891 Long term (current) use of opiate analgesic; E11.42 Type 2 diabetes mellitus with diabetic polyneuropathy; I10 Essential (primary) hypertension; F17.210 Nicotine dependence, cigarettes, uncomplicated; J98.4 Other disorders of lung; E78.00 Pure hypercholesterolemia, unspecified; Z88.6 Allergy status to analgesic agent; Z88.7 Allergy status to serum and vaccine; Z91.041 Radiographic dye allergy status; Z79.84 Long term (current) use of oral hypoglycemic drugs; Z79.899 Other long term (current) drug therapy ==

== ENCOUNTER → 2022-06-22 | Outpatient (CLI) | payer MEDICARE | LOC: M RAD 11:17 | PROVIDERS: ATTEND Nurse Practitioner Family | DX: M54.2 Cervicalgia (principal) ==

== ENCOUNTER → 2022-08-03 | Outpatient (CLI) | payer MEDICARE | LOC: M PAIN 10:45 | PROVIDERS: ATTEND Nurse Practitioner Family | DX: M54.2 Cervicalgia (principal); E11.42 Type 2 diabetes mellitus with diabetic polyneuropathy; I10 Essential (primary) hypertension; F17.210 Nicotine dependence, cigarettes, uncomplicated; E78.00 Pure hypercholesterolemia, unspecified; Z79.891 Long term (current) use of opiate analgesic; Z79.4 Long term (current) use of insulin; Z79.899 Other long term (current) drug therapy; Z88.6 Allergy status to analgesic agent; Z88.7 Allergy status to serum and vaccine; Z91.041 Radiographic dye allergy status ==

== ENCOUNTER → 2022-09-27 | Outpatient (CLI) | payer MEDICARE ==
[2022-09-27 14:36] LABS: HEMOGLOBIN A1c 10.3 % (4.0-6.0)
[2022-09-27 14:40] LABS: CREATININE, URINE 18.1 MG/DL
== END ==
LOC: M PLALAB 10:01
PROVIDERS: ATTEND Family Medicine
DX: E11.40 Type 2 diabetes mellitus with diabetic neuropathy, unspecified (principal); E11.29 Type 2 diabetes mellitus with other diabetic kidney complication; R80.9 Proteinuria, unspecified

== ENCOUNTER → 2022-11-09 | Outpatient (CLI) | payer MEDICARE ==
[~2022-11-09] MED LIST changes: -GABA-283 PO; +GABA-284 PO
== END ==
LOC: M PAIN 10:45
PROVIDERS: ATTEND Nurse Practitioner Family
DX: M47.812 Spondylosis without myelopathy or radiculopathy, cervical region (principal); G89.29 Other chronic pain; M54.2 Cervicalgia; E11.42 Type 2 diabetes mellitus with diabetic polyneuropathy; I10 Essential (primary) hypertension; F17.210 Nicotine dependence, cigarettes, uncomplicated; E78.00 Pure hypercholesterolemia, unspecified; Z79.891 Long term (current) use of opiate analgesic; Z79.84 Long term (current) use of oral hypoglycemic drugs; Z79.899 Other long term (current) drug therapy; Z88.6 Allergy status to analgesic agent; Z91.041 Radiographic dye allergy status; Z88.7 Allergy status to serum and vaccine

== ENCOUNTER → 2022-11-16 | Outpatient (CLI) | payer MEDICARE | LOC: M PAIN 10:30 | PROVIDERS: ATTEND Nurse Practitioner Family | DX: M54.2 Cervicalgia (principal); G89.29 Other chronic pain; E11.42 Type 2 diabetes mellitus with diabetic polyneuropathy; I10 Essential (primary) hypertension; F17.210 Nicotine dependence, cigarettes, uncomplicated; E78.00 Pure hypercholesterolemia, unspecified; J98.4 Other disorders of lung; Z79.891 Long term (current) use of opiate analgesic; Z79.84 Long term (current) use of oral hypoglycemic drugs; Z79.899 Other long term (current) drug therapy; Z88.6 Allergy status to analgesic agent; Z91.041 Radiographic dye allergy status; Z88.7 Allergy status to serum and vaccine ==

== ENCOUNTER → 2023-01-25 | Outpatient (CLI) | payer MEDICARE ==
[~2023-01-25] MED LIST changes: +ISOVUE-M 300 61% 15ML VIAL As Ordered ONE; +LIDOCAINE 1% SDV 30ML VIAL As Ordered ONE
== END ==
LOC: M PAIN 08:30
PROVIDERS: ATTEND Anesthesiology
DX: M47.812 Spondylosis without myelopathy or radiculopathy, cervical region (principal); G89.29 Other chronic pain; E11.42 Type 2 diabetes mellitus with diabetic polyneuropathy; I10 Essential (primary) hypertension; F17.210 Nicotine dependence, cigarettes, uncomplicated; E78.00 Pure hypercholesterolemia, unspecified; J98.4 Other disorders of lung; Z79.4 Long term (current) use of insulin; Z79.891 Long term (current) use of opiate analgesic; Z79.899 Other long term (current) drug therapy; Z88.6 Allergy status to analgesic agent; Z91.041 Radiographic dye allergy status
CPT/HCPCS: 64490; 64491; J0665; Q9967

== ENCOUNTER → 2023-03-01 | Outpatient (CLI) | payer MEDICARE ==
[~2023-03-01] MED LIST changes: -ISOVUE-M 300 61% 15ML VIAL As Ordered ONE; -LIDOCAINE 1% SDV 30ML VIAL As Ordered ONE
== END ==
LOC: M PAIN 10:45
PROVIDERS: ATTEND Nurse Practitioner Family
DX: M54.81 Occipital neuralgia (principal); G89.29 Other chronic pain; F17.210 Nicotine dependence, cigarettes, uncomplicated; Z88.6 Allergy status to analgesic agent; Z91.041 Radiographic dye allergy status; Z79.84 Long term (current) use of oral hypoglycemic drugs; Z79.891 Long term (current) use of opiate analgesic; Z79.899 Other long term (current) drug therapy

== ENCOUNTER → 2023-05-10 | Outpatient (CLI) | payer MEDICARE ==
[~2023-05-10] MED LIST changes: +NORCO, ANEXSIA 5/325MG TABLET (HYDROcodone/ACETAMINOPHEN) As Ordered ONE; +TRIAMCINOLONE ACETONIDE SUSP 40MG/ML 1ML VIAL As Ordered ONE; +diazePAM 5MG TABLET As Ordered ONE
== END ==
LOC: M PAIN 11:00
PROVIDERS: ATTEND Anesthesiology
DX: M79.12 Myalgia of auxiliary muscles, head and neck (principal); M54.2 Cervicalgia; I10 Essential (primary) hypertension; E11.40 Type 2 diabetes mellitus with diabetic neuropathy, unspecified; E78.00 Pure hypercholesterolemia, unspecified; Z79.84 Long term (current) use of oral hypoglycemic drugs; Z79.899 Other long term (current) drug therapy; Z91.041 Radiographic dye allergy status; F17.210 Nicotine dependence, cigarettes, uncomplicated
CPT/HCPCS: 20552; J0665; J3301